=== PATIENT | female | born 2005 | race Caucasian/White ===

== ENCOUNTER 2024-06-01 01:07 | Emergency (ER) | payer OTHER, SELFPAY ==
[2024-06-01 01:16] VITALS: BP 125/74; PULSE 75; RESP 20; TEMP 36.7; O2SAT 100; BMI 25.0
[2024-06-01 01:33] VITALS: TEMP 36.7
[2024-06-01] MEDS: LOPERAMIDE HCL 2 MG CAPSULE PO (01:33)
[2024-06-01] MEDS: FAMOTIDINE 20 MG TABLET PO (01:33)
[2024-06-01] MEDS: ONDANSETRON ODT 4 MG TAB PO (01:33)
[2024-06-01] MEDS: ACETAMINOPHEN 500 MG TABLET 1000 MG PO (01:33)
--- NOTE | 2024-06-01 01:50 | ED.GENADULT ---
HPI - General Adult General Chief complaint: Abdominal Pain Stated complaint: right side abdominal pain Time Seen by Provider: 06/01/24 01:20 Source: patient Mode of arrival: ambulatory Limitations: no limitations History of Present Illness HPI narrative: 18-year-old female presents with 1 hour of epigastric area pain. Accompanied by mild nausea. No vomiting. Patient had about of loose watery stool at onset of symptoms, none since. Has not tried taking any Tylenol, ibuprofen, Imodium, Pepto, Tums or other typical medications. Called the nurse triage line and they recommended that she be evaluated. Rationale for that is unclear. No bloody stools, no bloody emesis. No abdominal trauma or injury. Not anticoagulated. No prior history of abdominal surgeries. No recent antibiotic use. No pertinent travel. No known sick contacts. Normal urination, has been eating and drinking normally through the day. Pain does radiate to the right side a little bit but mainly just to the epigastrium area on her description. No history of pancreatitis, heavy alcohol use or other symptoms. Past medical history benign per her report. Home medications are Vistaril sertraline and control. Allergy to penicillin. ROS notable for the GI symptoms as above only, otherwise benign times 12 systems. Related Data Home Medications ?Medication ?Instructions ?Recorded ?Confirmed hydroxyzine pamoate 25 mg capsule 25 mg PO DAILY PRN 06/01/24 06/01/24 norethindrone (contraceptive) 0.35 0.35 mg PO DAILY 06/01/24 06/01/24 mg tablet (Alie) sertraline 100 mg tablet 100 mg PO DAILY 06/01/24 06/01/24 Allergies Allergy/AdvReac Type Severity Reaction Status Date / Time Penicillins Allergy Mild Hives Verified 06/01/24 01:18 Exam Const: Vital Signs, click to edit/add: Vital Signs - 24 hr 06/01/24 01:16 06/01/24 01:33 Temperature 98.0 F 98.0 F Pulse Rate [Right Pulse Oximeter] 75 Respiratory Rate 20 Blood Pressure [Ri ght Upper Arm] 125/74 Pulse Oximetry 100 Oxygen Delivery Me thod Room Air Documenting provider has reviewed patient's vital signs: yes Common normals: no apparent distress General appearance: cooperative, comfortable and well kempt HENMT: Common normals: normocephalic, moist oral mucous membranes and oropharynx normal Head and scalp: normocephalic Face and sinus: normal facial exam Mouth: oral and palatal mucosa normal Eye: Common normals: conjunctivae normal General eye: normal appearance of both eyes Conjunctiva: conjunctiva(e) normal Neck & C-Spine: Common normals: no lymphadenopathy General: normal visual inspection Resp: Common normals: normal respiratory effort, no use of accessory muscles and clear to auscultation bilaterally Auscultation: clear to auscultation bilaterally Cardio: Common normals: regular rate, regular rhythm, S1 normal heart sound, S2 normal heart sound and no murmurs Rate: regular rate Rhythm: regular rhythm Heart sounds: S1 normal and S2 normal GI: Common normals: Normal to inspection, nondistended, normoactive bowel sounds present, soft to palpation, no hepatosplenomegaly and no masses Palpation: soft and no hepatosplenomegaly Other: Mildly tender to epigastrium only, no rebound tenderness or guarding. No mass. Psych: Common normals: thought process normal Appearance: well kempt Attitude: engaged Mood and affect: euthymic mood Thought process: normal thought process Attention/concentration: attention grossly intact Insight: insight good Judgement: judgment good Skin: Common normals: no rashes or lesions noted General skin exam: no rashes or lesions noted Course Course ED Course: 18-year-old female with nausea and single bout of diarrhea, nonbloody. No fevers, severe weakness, vomiting, fever. Exam is fairly reassuring. Most likely diagnosis is gastroenteritis but cannot exclude gallstone, gallbladder disease, less likely would be pancreatitis, obstruction, volvulus, musculoskeletal, amongst others. Exam is very initially reassuring. I recommended a trial of Imodium, Tylenol, famotidine, Zofran and re-evaluate. If not effective, would then recommend further workup. Reevaluation(s) Time of Reevaluation #1: 02:14 Reevaluation #1: Patient did very well with the famotidine, Zofran, Imodium and Tylenol. Asymptomatic now. Trial of oral liquids here in the ED when great. We discussed her symptoms and how I think this is a simple gastroenteritis but could be an early Isiah of something more bothersome like gallbladder disease, colitis, inflammatory bowel disease, etc.. If she has persistent symptoms she should seek re-evaluation. Alarm symptoms are reviewed there were warrant ED presentation like persistent vomiting, high fever, severe pain. She verbalizes understanding and agreement. She will supervisor opening and picking some [id number] Imodium, continue Tylenol and ibuprofen. She will be given a small supply of Zofran from [facility]. Typical course of the illness was reviewed. Written instructions provided. Vital Signs Vital signs: Initial Vital Signs Temperature 98.0 F 06/01/24 01:16 Temperature Source Temporal Artery Scan 06/01/24 01:16 Pulse Rate 75 06/01/24 01:16 Respiratory Rate 20 06/01/24 01:16 Blood Pressure 125/74 06/01/24 01:16 Blood Pressure Mean 91 06/01/24 01:16 Blood Pressure Position Sitting 06/01/24 01:16 Pulse Oximetry 100 06/01/24 01:16 Oxygen Delivery Method Room Air 06/01/24 01:16 Vital Signs Temperature 98.0 F 06/01/24 01:16 Pulse Rate 75 06/01/24 01:16 Respiratory Rate 20 06/01/24 01:16 Blood Pressure 125/74 06/01/24 01:16 Pulse Oximetry 100 06/01/24 01:16 Oxygen Delivery Method Room Air 06/01/24 01:16 Temperature 98.0 F 06/01/24 01:33 Pulse Rate 75 06/01/24 01:16 Respiratory Rate 20 06/01/24 01:16 Blood Pressure 125/74 06/01/24 01:16 Pulse Oximetry 100 06/01/24 01:16 Oxygen Delivery Method Room Air 06/01/24 01:16 Medications Administered Medications: Discontinued Medications Generic Name Dose Route Start Last Admin Trade Name Tiana PRN Reason Stop Dose Admin Acetaminophen 1,000 mg 06/01/24 01:27 06/01/24 01:33 Acetaminophen 500 Mg Tablet PO 06/01/24 01:28 1,000 mg ONCE ONE Administration Famotidine 20 mg 06/01/24 01:27 06/01/24 01:33 Famotidine 20 Mg Tablet PO 06/01/24 01:28 20 mg ONCE ONE Administration Loperamide HCl 2 mg 06/01/24 01:27 06/01/24 01:33 Loperamide Hcl 2 Mg Capsule PO 06/01/24 01:28 2 mg ONCE ONE Administration Ondansetron HCl 4 mg 06/01/24 01:27 06/01/24 01:33 Ondansetron Odt 4 Mg Tab PO 06/01/24 01:28 4 mg ONCE ONE Administration Discharge Plan Discharge Clinical Impression: Gastroenteritis Patient Disposition: Home w/ Parent or Adult Condition: Improved Instructions: Gastroenteritis (DC) Additional Instructions: As we discussed, your symptoms are likely from a viral stomach flu, also known as gastroenteritis. I am glad the medicines were helpful. I would recommend that you invest in some [id number] Imodium. This is a common antidiarrheal medicine that every adult should have easy access to. It is okay to use Tylenol 1000 mg every 6 hours as needed for discomfort. I will give you a prescription for Zofran which is the anti nausea medicine that you were given here. You may take this if the nausea worsens again, up to every 6 hours. Since her symptoms are quite mild, I did not recommend further workup. If you continue to have these persistent spells, it could be a sign of some mild gallbladder disease. I would recommend that you follow-up in the primary care clinic for further evaluation if this keeps occurring. If you have severe right-sided abdominal plain plus fever and persistent vomiting, you should come to an emergency department. Also return if you have been unable to hold down any liquids for over 16 hours even with medications, severe bloody stools or other signs of severe weakness or worsening. Since her symptoms are mild, you may return to all school and or work duties immediately. Activity Level: No Restrictions Discharge Diet: Regular Prescriptions: No Action sertraline 100 mg tablet 100 mg PO DAILY hydroxyzine pamoate 25 mg capsule 25 mg PO DAILY PRN norethindrone (contraceptive) [Alie] 0.35 mg tablet 0.35 mg PO DAILY Stand Alone Forms: [employer] Info Instructions
--- OUTSIDE RECORDS SUMMARY | 2024-06-01 01:54 | XMS_ITS | Referral Summary ---
Author Organization [facility] Address [address] [place] [address]. [place] [address] Care Team Providers Care Foreign Car Mechanic Name Role Phone Jazmine Lacey MD Primary Care Provider [phone] Allergies No known active allergies Medications Medication Sig Dispensed Refills Start Date End Date Status NO ACTIVE MEDICATIONS Act gildardo Immunizations Name Administration Dates Next Due DTAP (<7y) 06/21/2009, 6,2004,2004, HEPATITIS A (PEDS 12M-18Y) 06/12/2007,06/19/2006 HIB (PRP-T) 06/12/2007,2004,2004 HPV9 09/25/2016 Hepatitis B, Peds 06/27/2005,2004,08/24/20 04 Influenza (H1N1) 09/22/2009,08/16/2009 MMR 06/21/2009,06/27/2005 Meningococcal,unspecified 09/25/2016 Pneumococcal (PCV 7) 06/27/2005,2004,10/26,2004 Poliovirus, inactivated (IPV) 06/21/2009, 006,2004,2004 TDAP Vaccine (Adacel) 09/25/2016 Varicella 06/21/2009,09/26/2005 Social History Tobacco Use Types Packs/Day Years Used Date Smoking Tobacco: Never Smokeless Tobacco: Never Alcohol Use Standard Drinks/Week Comments Not Asked 0 (1 standard drink = 0.6 oz pur e alcohol) Sex and Gender Information Value Date Recorded Sex Assigned at Not on file Gender Identity Not on file Sexual Orientation Not on file Last Filed Vital Signs Vital Sign Reading Time Taken Comments Blood Pressure 102/60 08/09/2018 4:01 PM VALIDATION ARCHITECT Pulse 57 08/09/2018 4:01 PM VALIDATION ARCHITECT Temperature 37.1 ??C (98.8 ??F) 08/09/2018 4:01 PM CS T Respiratory Rate 20 06/21/2012 3:43 PM CDT Oxygen Saturation 97% 08/09/2018 4:01 PM VALIDATION ARCHITECT Inhaled Oxygen Concentration - - Weight 72.1 kg (159 lb) 08/09/2018 4:01 PM VALIDATION ARCHITECT Height 165.7 cm (5' 5.25) 09/10/2017 2:28 PM CS T Body Mass Index - - Plan of Treatment Not on file Care Teams Foreign Car Mechanic Relationship Specialty Start Date End Date Jazmine Lacey MD PCP - General Pediatrics 09/10/17
--- OUTSIDE RECORDS SUMMARY | 2024-06-01 01:54 | XMS_ITS | Patient Health Record ---
Author Organization [facility] Address [address] [place] [address] [address] [place] [address] Support Name Relationship Address Phone Aurora Simmons Guarantor Unknown [phone] Allergies Allergen (clinical drug ingredient) Drug/Non Drug Allergy documented on EMR Reaction Allergy Type Onset Date Status amoxicillin Amoxicillin hives Drug Allergy Act gildardo Reason For Referral No Information Immunizations Vaccine Route Administration Date Status Comme nts zzInfluenza, unspecified formulation (CPT 32826 Inactive) Unknown 07/14/2007 Administered (Jose Alejandro) Imported in from [employer] Conversion on Apr 06, 2013 zzInfluenza, unspecified formulation (CPT 96244 Inactive) IM Intramuscular 09/25/2016 Administered (Jose Alejandro) zzInfluenza, live, intranasal OTH Other/Miscellaneous 07/06/2013 Administered (Jose Alejandro) zzInfluenza, live, intranasal Unknown 06/18/2014 Administered (Jose Alejandro) zzInfluenza, FLUZONE 36MOS+ Unknown 06/24/2008 Administered (Jose Alejandro) zzInfluenza, FLUZONE 36MOS+ Unknown 06/28/2011 Administered (Jose Alejandro) zzInfluenza, FLUZONE 36MOS+ Unknown 06/24/2012 Administered (Jose Alejandro) zzInfluenza (split), preservative free, 6-35 months Unknown 07/06/2005 Administered (Jose Alejandro) zzInfluenza (split), preservative free, 6-35 months Unknown 08/15/2006 Administered (Jose Alejandro) Varicella (Varivax) Unknown 09/26/2005 Administered (Mi g) Varicella (Varivax) Unknown 06/21/2009 Administered (Mi g) Tdap (Boostrix) IM Intramuscular 09/25/2016 Administered ( Jose Alejandro) Pneumococcal conjugate PCV 13 Unknown 2004 Administered (Jose Alejandro) Pneumococcal conjugate PCV 13 Unknown 2004 Administered (Jose Alejandro) Pneumococcal conjugate PCV 13 Unknown 2004 Administered (Jose Alejandro) Pneumococcal conjugate PCV 13 Unknown 06/27/2005 Administered (Jose Alejandro) Novel [id number] Unknown 08/16/2009 Administered (Jose Alejandro) Novel Eymnmydou-[id number] Unknown 09/22/2009 Administered (Jose Alejandro) MMR Unknown 06/27/2005 Administered (Jose Alejandro) MMR Unknown 06/21/2009 Administered (Jose Alejandro) Meningococcal MCV4O (Menveo) (CVX 136) IM Intramuscular 09/25/2016 Administered (Jose Alejandro) Meningococcal MCV4O (Menveo) (CVX 136) IM Intramuscular 11/04/2020 Administered IPV (IPOL) Unknown 2004 Administered (Jose Alejandro) IPV (IPOL) Unknown 2004 Administered (Jose Alejandro) IPV (IPOL) Unknown 12/26/2005 Administered (Jose Alejandro) Influenza, (Fluarix)(VFC) 6mos + IM Intramuscular 07/05/2017 Administered Influenza, (Fluarix)(VFC) 6mos + Unknown 2020 Administered HPV9 (Gardasil) IM Intramuscular 05/04/2017 Administered HPV (human papillomavirus), quadrivalent, 3 dose schedule IM Intramuscular 09/25/2016 Administered (Jose Alejandro) Hib-Hep B Unknown 2004 Administered (Jose Alejandro) Hib-Hep B Unknown 2004 Administered (Jose Alejandro) Hib, unspecified formulation Unknown 06/12/2007 Administered (Jose Alejandro) Hep B, adol or ped, Engerix B 3 dose schedule Unknown 06/27/2005 Administered (Jose Alejandro) Hep A, ped/adol, 2 dose (Havrix) Unknown 06/19/2006 Administered (Jose Alejandro) Hep A, ped/adol, 2 dose (Havrix) Unknown 06/12/2007 Administered (Jose Alejandro) DTaP-IPV (Kinrix) 4-6 yrs Unknown 06/21/2009 Administered (Jose Alejandro) DTaP (INFANRIX) Unknown 2004 Administered (Jose Alejandro) DTaP (INFANRIX) Unknown 2004 Administered (Jose Alejandro) DTaP (INFANRIX) Unknown 2004 Administered (Jose Alejandro) DTaP (INFANRIX) Unknown 09/26/2005 [place] History Tobacco Use: Social History Observation Description Date Details (start date - stop date) Never Smoker NA - NA Tobacco Use/Smoking Question Answer Notes Are you a nonsmoker Tobacco use other than smoking: Question Answer Notes Are you an other tobacco user? No Problems Problem Type SNOMED Code ICD Code Onset Dates Problem Status W/U Status Risk Notes Problem Overweight (359133250) Overweight (E66.3) Active confirmed Problem 095200095 Wears glasses (Z97.3) Active confirmed Plan Of Treatment No Information Insurance Providers Payer Name Payer Address Payer Phone Subscriber Number Group Number Insured Name Patient Relationship to Insured Coverage Start Date Coverage End Date [employer] [address] [address] [place], [place] [id number] Aurora Zepeda Child - Insured has Financial Responsibility Medical (General) History Medical History History ICD Code obstructed tear ducts Other atopic dermatitis and related cond itions 691.8 Surgical History Surgery Date(Month/Year) Procedure:glasses() 06/18/2014 Procedure:NLD probe() 07/06/2013
--- OUTSIDE RECORDS SUMMARY | 2024-06-01 01:54 | XMS_ITS | Encounter Summary ---
Author Organization [facility] Address [address] [place] [address] Care Team Providers Care Fish Dressing Machine Feeder Name Role Phone Self-Referral, Patient Primary Care Provider Encounter Details Date Type Department Care Team (Latest Contact Info) Description 05/01/2024 9:30 AM CDT Lab Visit [facility] [address] [place], [place] [id number] Generalized anxiety disorder (HRC); Need for hepatitis C screening test; Screening for HIV (human immunodeficiency virus); Anxiety (HRC) Social History Tobacco Use Types Packs/Day Years Used Date Smoking Tobacco: Never Passive Smoke Exposure: Never Smokeless Tobacco: Never Alcohol Use Standard Drinks/Week Comments Never 0 (1 standard drink = 0.6 oz pur e alcohol) Sex and Gender Information Value Date Recorded Sex Assigned at Not on file Gender Identity Not on file Sexual Orientation Not on file documented as of this encounter Plan of Treatment Not on file documented as of this encounter Procedures Procedure Name Priority Date/Time Associated Diagnosis Comments CBC, NO DIFFERENTIAL REVIEW Routine 05/01/2024 9:43 AM CDT Generalized anxiety disorder (HRC) HIV 1/2 AG/AB 4TH GEN Routine 05/01/2024 9:43 AM CDT Screening for HIV (human immunodeficiency virus) VITAMIN D 25-HYDROXY, TOTAL Routine 05/01/2024 9:43 AM CDT Generalized anxiety disorder (HRC) T3, FREE Routine 05/01/2024 9:43 AM CDT Generalized anxiety disorder (HRC) COMPREHENSIVE METABOLIC PANEL Routine 05/01/2024 9:43 AM CDT Generalized anxiety disorder (HRC) TSH, SENSITIVE Routine 05/01/2024 9:43 AM CDT Generalized anxiety disorder (HRC) FREE T4 Routine 05/01/2024 9:43 AM CDT Generalized anxiety disorder (HRC) HEPATITIS C ANTIBODY, WITH REFLEX Routine 05/01/2024 9:43 AM CDT Need for hepatitis C screening test VITAMIN B12 ONLY Routine 05/01/2024 9:43 AM CDT Generalized anxiety disorder (HRC) documented in this encounter Results * HIV 1/2 Ag/Ab 4th Generation (05/01/2024 9:43 AM CDT) HIV 1/2 Antigen/Anti body (4th generation) Negative (Non Reactive) Negative (Non Reactive) 05/01/2024 4:03 PM CDT [facility] Comment:HIV-1 p24 Antigen an d HIV-1/HIV-2 Antibody not detected Blood Venipuncture / Unknown 05/01/2024 9:43 AM CDT 05/01/2024 9:43 AM CDT Zeke Mccarty MD LAB_1 [facility] [address] * Hepatitis C Antibody, with Reflex (05/01/2024 9:43 AM CDT) Hepatitis C Antibody Negative (Non Reactive) Negative (Non Reactive) 05/01/2024 3:52 PM CDT [facility] Comment:Antibodies to HCV no t detected. Does not exclude the possiblity of exposure to HCV. Blood Venipuncture / Unknown 05/01/2024 9:43 AM CDT 05/01/2024 9:43 AM CDT Zeke Mccarty MD LAB_1 Performing Organization Address [facility] Co de Phone Number [facility] [address] * (ABNORMAL) Vitamin D 25-Hydroxy, Total (05/01/2024 9:43 AM CDT) Vitamin D, 25-OH, Total 22(L) 30 - 80 ng/mL 05/01/2024 3:[address] [facility] Blood Venipuncture / Unknown 05/01/2024 9:43 AM CDT 05/01/2024 9:[address] [facility] - 05/01/2024 3:55 PM CDT Expected values Deficiency: <20 ng/mL Insufficiency: 20-29 ng/mL Optimum: 30-80 ng/mL Possible toxicity: >80 ng/mL Rose Mary Gomez APRN, CNM LAB_1 Performing Organization Address [facility] Co de Phone Number [facility] [address] * Vitamin B12 Only (05/01/2024 9:43 AM CDT) Pathologist [facility] Vitamin B12 349 213 - 816 pg/mL 05/01/2024 4:[address] [facility] Blood Venipuncture / Unknown 05/01/2024 9:43 AM CDT 05/01/2024 9:43 AM CDT Rose Mary Gomez APRN, CNM LAB_1 Performing Organization Address [facility] Co de Phone Number [facility] [address] * TSH (05/01/2024 9:43 AM CDT) TSH, Sensitive 0.77 0.30 - 4.50 uIU/mL 05/01/2024 4:[address] [facility] Blood Venipuncture / Unknown 05/01/2024 9:43 AM CDT 05/01/2024 9:43 AM CDT Rose Mary Gomez APRN, CNM LAB_1 Performing Organization Address [facility] Co de Phone Number [facility] [address] * Free T4 (05/01/2024 9:43 AM CDT) T4, Free 0.9 0.7 - 1.5 ng/dL 05/01/2024 4:[address] [facility] Blood Venipuncture / Unknown 05/01/2024 9:43 AM CDT 05/01/2024 9:43 AM CDT Rose Mary Gomez APRN, CNM LAB_1 Performing Organization Address [facility] Co de Phone Number [facility] [address] * T3, Free (05/01/2024 9:43 AM CDT) T3, Free 2.9 1.7 - 3.7 pg/mL 05/01/2024 4:[address] [facility] Blood Venipuncture / Unknown 05/01/2024 9:43 AM CDT 05/01/2024 9:43 AM CDT Rose Mary Gomez APRN, CNM LAB_1 Performing Organization Address [facility] de Phone Number [facility] [address] * Comp Metabolic Panel (05/01/2024 9:43 AM CDT) Sodium 137 136 - 145 mmol/L 05/01/2024 3:48 PM CDT [facility] Potassium 4.0 3.5 - 5.1 mmol/L 05/01/2024 3:48 PM [facility] Chloride 107 98 - 109 mmol/L 05/01/2024 3:48 PM [facility] CO2 23 20 - 29 mmol/L 05/01/2024 3:48 PM [facility] Anion Gap 7 6 - 16 mmol/L 05/01/2024 3:48 PM [facility] Calcium 9.5 8.4 - 10.4 mg/dL 05/01/2024 3:48 PM [facility] BUN 16 7 - 26 mg/dL 05/01/2024 3:48 PM [facility] Creatinine 0.71 0.55 - 1.02 mg/dL 05/01/2024 3:48 PM [facility] Alkaline Phosphatase 46 40 - 150 U/L 05/01/2024 3:48 PM [facility] AST (SGOT) 17 10 - 40 U/L 05/01/2024 3:48 PM [facility] ALT (SGPT) 18 <=55 U/L 05/01/2024 3:48 PM [facility] Bilirubin, Total 0.4 0.2 - 1.2 mg/dL 05/01/2024 3:48 PM [facility] Protein, Total 7.0 6.4 - 8.3 g/dL 05/01/2024 3:48 PM [facility] Albumin 4.2 3.5 - 5.0 g/dL 05/01/2024 3:48 PM [facility] Glucose 77 70 - 100 mg/dL 05/01/2024 3:48 PM [facility] Comment:The given reference range is for the fasting state. Non-fasting reference range for glucose is 70 - 180 mg/dL. GFR, Estimated >60 >60 mL/min/1. 73m2 05/01/2024 3:48 PM [facility] Hours Fasting 0.1 8 - 12 Hours 05/01/2024 3:48 PM [facility] Blood Venipuncture / Unknown 05/01/2024 9:43 AM CDT 05/01/2024 9:43 AM CDT Rose Mary Gomez APRN, CNM LAB_1 [facility] [address] * CBC, No Differential Review (05/01/2024 9:43 AM CDT) WBC 6.3 3.5 - 10.5 x10(9)/L 05/01/2024 4:33 PM [facility] RBC 4.54 3.90 - 5.03 x10(12)/L 05/01/2024 4:33 PM [facility] Hemoglobin 13.1 12.0 - 15.5 g/dL 05/01/2024 4:33 PM [facility] HCT 40.0 34.9 - 44.5 % 05/01/2024 4:33 PM [facility] MCV 88.1 80.0 - 100.0 fL 05/01/2024 4:33 PM [facility] MCH 28.9 27.6 - 33.3 pg 05/01/2024 4:33 PM [facility] MCHC 32.8 31.5 - 35.2 g/dL 05/01/2024 4:33 PM [facility] RDW 11.9 11.9 - 15.5 % 05/01/2024 4:33 PM [facility] Platelets 274 150 - 450 x10(9)/L 05/01/2024 4:33 PM [facility] Automated NRBC 0 <=0 /100 WBC 05/01/2024 4:33 PM [facility] Blood Venipuncture / Unknown 05/01/2024 9:43 AM CDT 05/01/2024 9:43 AM CDT Rose Mary Gomez APRN, CNM LAB_1 [place] [address], [facility] documented in this encounter Visit Diagnoses Diagnosis Generalized anxiety disorder (HRC) Generalized anxiety disorder Need for hepatitis C screening test Special screening examination for other specified viral diseases Screening for HIV (human immunodeficiency virus) Special screening examination for other specified viral diseases Anxiety (HRC) Anxiety state, unspecified documented in this encounter Care Teams Fish Dressing Machine Feeder Relationship Specialty Start Date End Date Self-Referral, Patient, [place] [address] PCP - General 07/03/22 documented as of this encounter
--- OUTSIDE RECORDS SUMMARY | 2024-06-01 01:54 | XMS_ITS | Encounter Summary ---
Author Organization Formerly [facility], later [facility] Address [address] [place] [address] Care Team Providers Care Production Ski Repairer Name Role Phone Self-Referral, Patient Primary Care Provider Reason for Referral * Consult/Transfer Care (Routine) - New Request Specialty Diagnoses / Procedures Referred By Stefany palma Referred To Contact Diagnoses Encounter for other contraceptive management Zeke Mccarty MD [id number] [place] [id number] Referral ID Status Reason Start Date Expiration Date V isits Requested Visits Authorized [id number] New Request 05/01/2024 07/31/2025 1 1 Scheduling Instructions Your clinician has recommended an appointment with [facility] DIRECTOR OF GOVERNMENT SALES. You can quickly make your appointment online at [email or web address]. You can also call [phone] for help scheduling your appointment. We suggest you call your health insurance company about your coverage and benefits for this appointment. Question Answer Appointment Urgency? Non-Urgent Reason for Visit? Control Comments [place] Reason for Visit * Reason Comments ROUTINE HEALTH MAINTENANCE Encounter Details Date Type Department Care Team (Latest Contact Info) Description 05/01/2024 8:50 AM CDT Office Visit [facility] [id number] [place] [id number] [place] [address] [place], [place] [id number] Routine health maintenance (Primary Dx); Routine screening for STI (sexually transmitted infection); Screening for iron deficiency anemia; Need for hepatitis C screening test; Screening for HIV (human immunodeficiency virus); Current moderate episode of major depressive disorder, unspecified whether recurrent (HRC); Anxiety (HRC); Encounter for other contraceptive management; Screening for STDs (sexually transmitted diseases); Encounter for immunization Social History Tobacco Use Types Packs/Day Years Used Date Smoking Tobacco: Never Passive Smoke Exposure: Never Smokeless Tobacco: Never Tobacco Cessation:Counseling Given: Not Answered Alcohol Use Standard Drinks/Week Comments Never 0 (1 standard drink = 0.6 oz pur e alcohol) Sex and Gender Information Value Date Recorded Sex Assigned at Not on file Gender Identity Not on file Sexual Orientation Not on file documented as of this encounter Last Filed Vital Signs Vital Sign Reading Time Taken Comments Blood Pressure 118/67 05/01/2024 8:43 AM CDT Pulse 72 05/01/2024 8:43 AM CDT Temperature - - Respiratory Rate - - Oxygen Saturation - - Inhaled Oxygen Concentration - - Weight 67.1 kg (148 lb) 05/01/2024 8:43 AM CDT Height 167 cm (5' 5.75) 05/01/2024 8:43 AM CDT Body Mass Index 24.07 05/01/2024 8:43 AM CDT documented in this encounter Patient Instructions * Patient Instructions* Zeke Mccarty MD - 05/01/2024 8:50 AM CDT Images from the original note were not included. Vitamin d 2000 IU daily Or you can take 61603 IU once a week ( 2 x 5000 IU) Start taking control You can started after your periods or start right away. Recommend to forms of protection ie condoms for the 1st 2 weeks. You can discuss with OBGYN about different forms of contraception. Example Nexplanon Normal exam Do labs today Plan based on results Good luck with school It's been a pleasure seeing you today. Zeke Mccarty MD 05/01/2024, 9:28 AM Well Visit, Ages 18 to 65: Care Instructions Well visits can help you stay healthy. Your doctor has checked your overall health and may have suggested ways to take good care of yourself. Your doctor also may have recommended tests. You can helpprevent illness with healthy eating, good sleep, vaccinations, regular exercise, and other steps. Get the tests that you and your doctor decide on. Depending on your age and risks, examples might include screening for diabetes; hepatitis C; HIV; and cervical, breast, lung, and colon cancer. Screening helps find diseases before any symptoms appear. Eat healthy foods. Choose fruits, vegetables, whole grains, lean protein, and low-fat dairy foods. Limit saturated fat and reduce salt. Limit alcohol. Men should have no more than 2 drinks a day. Women should have no more than 1. For some people, no alcohol is the best choice. Exercise. Get at least 30 minutes of exercise on most days of the week. Walking can be a good choice. Reach and stay at your healthy weight. This will lower your risk for many health problems. Take care of your mental health. Try to stay connected with friends, family, and community, and find ways to manage stress. If you're feeling depressed or hopeless, talk to someone. A counselor can help. If you don't have acounselor, talk to your doctor. Talk to your doctor if you think you may have a problem with alcohol or drug use. This includes prescription medicines, marijuana, and other drugs. Avoid tobacco and nicotine: Don't smoke, vape, or chew. If you need help quitting, talk to your doctor. Practice safer sex. Getting tested, using condoms or dental dams, and limiting sex partners can help prevent STIs. Use control if it's important to you to prevent . Talk with your doctor about your choices and what might be best for you. Prevent problems where you can. Protect your skin from too much sun, wash your hands, brush your teeth twice a day, and wear a seat belt in the car. Where can you learn more? 1. Go to https://www.urturn/healthlibrary. 2. Enter P072 in the search box. Current as of: April 14, 2023 Content Version: 14.1 ?? [employer]. Care instructions adapted under license by your healthcare professional. If you have questions about a medical condition or this instruction, always ask your healthcare professional. [employer] disclaims any warranty or liability for your use of this information. Terapio DNA is your genetic information, and it's unique to you. It can also hold the garcia to discovering genetic health risks, creating personalized care and building a healthier community. [facility] is launching myGenetics, a study that looks at how DNA impacts health and how it canbe used to provide more personalized care to you, your family and community. What you can learn from your DNA Looking at your DNA can give insight to your personal traits, ancestral roots and risk of developing certain inherited conditions. Discover your genetic risk for: Hereditary breast and ovarian cancer Barrett syndrome (a type of hereditary colorectal cancer) Familial hypercholesterolemia (hereditary high cholesterol) Learn about your: Regional ancestry Traits like gluten tolerance, caffeine sensitivity and more How to participate Be a part of a program that could improve health care for you, your family and generations to come.If you're a [facility] or Negar Gunter patient over the age of 18, you can take part in the study. Registration is quick and easy, and there is no cost to you. Learn more about [employer] and register at urturn/[email or web address] Your privacy is our priority We take great care to keep your information safe and secure and will not share personal data beyondwhat you have consented to. documented in this encounter Progress Notes * Zeke Mccarty MD - 05/01/2024 8:50 AM CDT Manjit Hopkins presents for ROUTINE HEALTH MAINTENANCE Current concerns: Blood test she would like to get done per psychiatrist: CBC CMP Free T3 and Free T4 TSH Vitamin B12 Vitamin D New relationship- wants to be sexually active Requesting control Otherwise she feels well. No concerns Consumption of fruits and vegetables is 0-1 servings each day. Exercise is 3-5 times per week, 30 minutes or more. Hearing concerns: No Feels safe at home: Yes Allergies: Penicillin when she was a child. Past medical history: Depression anxiety. Past surgical history: Phillips tooth removed Social history: Never smoker. No alcohol or drug use. Lives at home with father and sister. Switches Garcia between mom and dad. They are . Patient quit drinking coffee 2 months ago because the psychiatrist recommended that. She drinks teasometimes. No soda consumption. She will be going to call in next Saturday in [facility]. Family history: Father has had knee surgery. Grandfather had some type of cancer. Mother is healthy. Objective BP 118/67 (BP Location: Right Arm, BP Cuff Size: Small Adult/Large Pediatrics) Pulse 72 Ht 5' 5.75 (1.67 m) Wt 148 lb (67.1 kg) LMP 04/03/2024 (Approximate) BMI 24.07 kg/m?? General: appears well, no acute distress, alert and oriented x3 HEENT: PERRLA, EOMI, nasal mucosa normal, MMM, Pharyngeal mucosa is normal NECK: supple soft without any lymphadenopathy LUNGS: Clear to auscultation bilaterally, no wheezes or rhonchi appreciated HEART: RRR, S1 S2 normal, no murmurs appreciated ABDOMEN: soft non tender non distended, positive bowel sounds NEURO: CN2-12 appears grossly normal, no significant motor or sensory deficits noted EXT: pedal pulses intact bilaterally, no pedal edema noted Assessment/Plan 1. Routine health maintenance Patient counseled: -healthy diet -increasing physical activity -tobacco cessation -safe alcohol consumption -protection from UV light -sleep hygiene -stress management -safety belt use -bike/cycle helmet use -firearm storage -calcium and vitamin D recommendations -recommended immunizations -contraception / STI prevention 2. Routine screening for STI (sexually transmitted infection) - Chlamydia & GC (14 Years and Older): Vagina 3. Screening for iron deficiency anemia 4. Need for hepatitis C screening test - Hepatitis C Antibody, with Reflex; Future 5. Screening for HIV (human immunodeficiency virus) - HIV 1/2 Ag/Ab 4th Generation; Future 6. Current moderate episode of major depressive disorder, unspecified whether recurrent (HRC) 7. Anxiety (HRC) Psychiatrist requested labs Counseled patient likely vitamin-D will not be covered She will take vitamin-D - Complete Blood Count-No Diff; Future - Comprehensive Metabolic Panel; Future - TSH; Future - T3, Free; Future - Free T4; Future - Vitamin B12 Only; Future 8. Encounter for other contraceptive management Counseled patient about contraception Start OCP Prescription sent She maybe interested in discussing about Nexplanon so will refer her to see OBGYN. Counseled patient about using OCPs and 2nd form of protection for the 1st 2 weeks and if on antibiotics - norethindrone-ethinyl estradiol (LOESTRIN 1/20, 21,) 1mg-20mcg tablet; Take 1 Tablet by mouth daily. Dispense: 84 Tablet; Refill: 4 - Ob-Chemical Sales Representative Consult 9. Screening for STDs (sexually transmitted diseases) - Chlamydia & GC (14 Years and Older): Vagina; Future 10. Encounter for immunization - 9Vhpv (Gardasil) Zeke Mccarty MD 05/01/2024, 10:27 AM documented in this encounter Plan of Treatment Scheduled Referrals Name Type Priority Associated Diagnoses Orde r Schedule Ob-Chemical Sales Representative Consult Referral Routine Encounter for other contraceptive management Ordered: 05/01/2024 documented as of this encounter Procedures Procedure Name Priority Date/Time Associated Diagnosis Comments CHLAMYDIA & GC (14 YEARS & OLDER) Routine 05/01/2024 8:59 AM CDT Routine screening for STI (sexually transmitted infection) documented in this encounter Results * HIV 1/2 Ag/Ab 4th Generation (05/01/2024 9:43 AM CDT) HIV 1/2 Antigen/Anti body (4th generation) Negative (Non Reactive) Negative (Non Reactive) 05/01/2024 4:03 PM CDT [facility] Comment:HIV-1 p24 Antigen an d HIV-1/HIV-2 Antibody not detected Blood Venipuncture / Unknown 05/01/2024 9:43 AM CDT 05/01/2024 9:43 AM CDT Zeke Mccarty MD LAB_1 [facility] [address] * Hepatitis C Antibody, with Reflex (05/01/2024 9:43 AM CDT) Hepatitis C Antibody Negative (Non Reactive) Negative (Non Reactive) 05/01/2024 3:52 PM CDT [facility] Comment:Antibodies to HCV no t detected. Does not exclude the possiblity of exposure to HCV. Blood Venipuncture / Unknown 05/01/2024 9:43 AM CDT 05/01/2024 9:43 AM CDT Zeke Mccarty MD LAB_1 Performing Organization Address [facility] Co de Phone Number [facility] [address] * Chlamydia & GC (14 Years and Older): Vagina (05/01/2024 8:59 AM CDT) Chlamydia Trachomatis STD Not Detected Not Detected 05/01/2024 3:47 PM CDT [facility] N. gonorrhoeae STD Not Detected Not Detected 05/01/2024 3:47 PM CDT [facility] Swab STD SPECIMEN FROM VAGINA / Unknown Non-blood Collection / Unknown 05/01/2024 8:59 AM CDT 05/01/2024 9:16 AM CDT Narrative [facility] - 05/01/2024 3:47 PM CDT Test performed by Sample Washer Mediated Amplification (TMA). Zeke Mccarty MD LAB_1 Performing Organization Address [facility] Co de Phone Number [facility] [address] documented in this encounter Visit Diagnoses Diagnosis Routine health maintenance- Primary Routine general medical examination at a health care facility Routine screening for STI (sexually transmitted infection) Screening examination for venereal disease Screening for iron deficiency anemia Need for hepatitis C screening test Special screening examination for other specified viral diseases Screening for HIV (human immunodeficiency virus) Special screening examination for other specified viral diseases Current moderate episode of major depressive disorder, unspecified whether recurrent (HRC) Anxiety (HRC) Anxiety state, unspecified Encounter for other contraceptive management Screening for STDs (sexually transmitted diseases) Screening examination for venereal disease Encounter for immunization Need for other specified prophylactic vaccination against single bacterial disease documented in this encounter Care Teams Production Ski Repairer Relationship Specialty Start Date End Date Self-Referral, Patient, [place] [address] PCP - General 07/03/22 documented as of this encounter
--- OUTSIDE RECORDS SUMMARY | 2024-06-01 01:54 | XMS_ITS | Encounter Summary ---
Author Organization [facility] Address [address], [place] [address] Care Team Providers Care Mouse Breeder Name Role Phone Self-Referral, Patient Primary Care Provider Encounter Details Date Type Department Care Team (Late st Contact Info) Description 03/19/2024 Orders Only [facility] [address] [place] [address] Rose Mary Gomez, DRIVE AWAY DRIVER, CNM [address] [place], [place] [phone] Generalized anxiety disorder (HRC) (Primary Dx) Social History Tobacco Use Types Packs/Day Years Used Date Smoking Tobacco: Never Assessed Sex and Gender Information Value Date Recorded Sex Assigned at Not on file Gender Identity Not on file Sexual Orientation Not on file documented as of this encounter Plan of Treatment Not on file documented as of this encounter Results * (ABNORMAL) Vitamin D 25-Hydroxy, Total (05/01/2024 9:43 AM CDT) Vitamin D, 25-OH, Total 22(L) 30 - 80 ng/mL 05/01/2024 3:55 PM CDT [facility] Blood Venipuncture / Unknown 05/01/2024 9:43 AM CDT 05/01/2024 9:43 AM CDT Narrative [facility] - 05/01/2024 3:55 PM CDT Expected values Deficiency: <20 ng/mL Insufficiency: 20-29 ng/mL Optimum: 30-80 ng/mL Possible toxicity: >80 ng/mL Rose Mary Gomez APRN, CNM LAB_1 Performing Organization Address [facility] Co de Phone Number [facility] [address] * Vitamin B12 Only (05/01/2024 9:43 AM CDT) Vitamin B12 349 213 - 816 pg/mL 05/01/2024 4:03 PM CDT [facility] Blood Venipuncture / Unknown 05/01/2024 9:43 AM CDT 05/01/2024 9:43 AM CDT Rose Mary Gomez APRN, CNM LAB_1 Performing Organization Address [facility] Co de Phone Number [facility] [address] * TSH (05/01/2024 9:43 AM CDT) TSH, Sensitive 0.77 0.30 - 4.50 uIU/mL 05/01/2024 4:03 PM CDT [facility] Blood Venipuncture / Unknown 05/01/2024 9:43 AM CDT 05/01/2024 9:43 AM CDT Rose Mary Gomez APRN, CNM LAB_1 Performing Organization Address [facility] Co de Phone Number [facility] [address] * Free T4 (05/01/2024 9:43 AM CDT) T4, Free 0.9 0.7 - 1.5 ng/dL 05/01/2024 4:03 PM CDT [facility] Blood Venipuncture / Unknown 05/01/2024 9:43 AM CDT 05/01/2024 9:43 AM CDT Rose Mary Gomez APRN, CNM LAB_1 [facility] [address] * T3, Free (05/01/2024 9:43 AM CDT) T3, Free 2.9 1.7 - 3.7 pg/mL 05/01/2024 4:03 PM CDT [facility] Blood Venipuncture / Unknown 05/01/2024 9:43 AM CDT 05/01/2024 9:43 AM CDT Rose Mary Gomez APRN, WILFRED LAB_1 Performing Organization Address City/[facility]/ZIP Co de Phone Number [facility] [address] * Comp Metabolic Panel (05/01/2024 9:43 AM CDT) Sodium 137 136 - 145 mmol/L 05/01/2024 3:48 PM CDT [facility] Potassium 4.0 3.5 - 5.1 mmol/L 05/01/2024 3:48 PM T [facility] Chloride 107 98 - 109 mmol/L 05/01/2024 3:48 PM T [facility] CO2 23 20 - 29 mmol/L 05/01/2024 3:48 PM T [facility] Anion Gap 7 6 - 16 mmol/L 05/01/2024 3:48 PM T [facility] Calcium 9.5 8.4 - 10.4 mg/dL 05/01/2024 3:48 PM T [facility] BUN 16 7 - 26 mg/dL 05/01/2024 3:48 PM T [facility] Creatinine 0.71 0.55 - 1.02 mg/dL 05/01/2024 3:48 PM T [facility] Alkaline Phosphatase 46 40 - 150 U/L 05/01/2024 3:48 PM T [facility] AST (SGOT) 17 10 - 40 U/L 05/01/2024 3:48 PM CDT [facility] ALT (SGPT) 18 <=55 U/L 05/01/2024 3:48 PM CDT [facility] Bilirubin, Total 0.4 0.2 - 1.2 mg/dL 05/01/2024 3:48 PM CDT [facility] Protein, Total 7.0 6.4 - 8.3 g/dL 05/01/2024 3:48 PM CDT [facility] Albumin 4.2 3.5 - 5.0 g/dL 05/01/2024 3:48 PM CDT [facility] Glucose 77 70 - 100 mg/dL 05/01/2024 3:48 PM T [facility] Comment:The given reference range is for the fasting state. Non-fasting reference range for glucose is 70 - 180 mg/dL. GFR, Estimated >60 >60 mL/min/1. 73m2 05/01/2024 3:48 PM CDT [facility] Hours Fasting 0.1 8 - 12 Hours 05/01/2024 3:48 PM T [facility] Blood Venipuncture / Unknown 05/01/2024 9:43 AM CDT 05/01/2024 9:43 AM CDT Rose Mary Gomez APRN, CNM LAB_1 Performing Organization Address City/State/[facility] Co de Phone Number [facility] [address] [place] [address], [facility] * CBC, No Differential Review (05/01/2024 9:43 AM CDT) WBC 6.3 3.5 - 10.5 x10(9)/L 05/01/2024 4:33 PM [facility] RBC 4.54 3.90 - 5.03 x10(12)/L 05/01/2024 4:33 PM [facility] Hemoglobin 13.1 12.0 - 15.5 g/dL 05/01/2024 4:33 PM [facility] HCT 40.0 34.9 - 44.5 % 05/01/2024 4:33 PM [facility] MCV 88.1 80.0 - 100.0 fL 05/01/2024 4:33 PM [facility] MCH 28.9 27.6 - 33.3 pg 05/01/2024 4:33 PM [facility] MCHC 32.8 31.5 - 35.2 g/dL 05/01/2024 4:33 PM [facility] RDW 11.9 11.9 - 15.5 % 05/01/2024 4:33 PM [facility] Platelets 274 150 - 450 x10(9)/L 05/01/2024 4:33 PM [facility] Automated NRBC 0 <=0 /100 WBC 05/01/2024 4:33 PM [facility] Blood Venipuncture / Unknown 05/01/2024 9:43 AM CDT 05/01/2024 9:43 AM CDT Rose Mary Gomez APRN, CNM LAB_1 Performing Organization Address City/State/[facility] Co de Phone Number [id number] [place] [address] documented in this encounter Visit Diagnoses Diagnosis Generalized anxiety disorder (HRC)- Primary Generalized anxiety disorder documented in this encounter Care Teams Mouse Breeder Relationship Specialty Start Date End Date Self-Referral, Patient, [place] [address] PCP - General 07/03/22 documented as of this encounter
--- OUTSIDE RECORDS SUMMARY | 2024-06-01 01:54 | XMS_ITS | Clinical Summary ---
Author Organization [facility] Address [address] [place] [address]. [place] [address] Care Team Providers Care Supervisor Motor Vehicle Assembly Name Role Phone Jazmine Lacey MD Primary Care Provider [phone] Allergies No known active allergies Medications Medication [...] Comments Blood Pressure 102/60 08/09/2018 4:01 PM EMT P Pulse 57 08/09/2018 4:01 PM EMT P Temperature 37.1 ??C (98.8 ??F) 08/09/2018 4:01 PM CS T Respiratory Rate 20 06/21/2012 3:43 PM CDT Oxygen Saturation 97% 08/09/2018 4:01 PM EMT P Inhaled Oxygen Concentration - - Weight 72.1 kg (159 lb) 08/09/2018 4:01 PM EMT P Height 165.7 cm (5' 5.25) 09/10/2017 2:28 PM CS T Body Mass Index - - Plan of Treatment Not on file Care Teams Supervisor Motor Vehicle Assembly Relationship Specialty Start Date End Date Jazmine Lacey MD PCP - General Pediatrics 09/10/17
--- OUTSIDE RECORDS SUMMARY | 2024-06-01 01:54 | XMS_ITS | Clinical Summary ---
Author Organization [facility] Address [address] [place] [address] Care Team Providers Care Dam Tender Name Role Phone Self-Referral, Patient Primary Care Provider Source Comments You are receiving this document as you are listed as the primary care provider,follow-up provider, or the patient has been referred to you for consultation.This is in compliance with the Medicare and[facility] EHR Incentive [facility],which states Providers who transition their patient to another setting of careor provider of care or refers their patient to another provider of care shouldprovide summary care record for each transition of care or referral. [email or web address] Allergies No known active allergies Medications Medication Sig Dispensed Refills Start Date End Date Status sertraline (ZOLOFT) 100 MG tablet Take 1 Tablet (100 mg) by mouth daily. 04/14/2024 Active hydrOXYzine HCl (ATARAX) 25 MG tablet Take 1 Tablet (25 mg) by mouth daily as needed. 04/18/2024 Active doxycycline (VIBRAMYCIN) 100 MG capsule Take 1 Capsule (100 mg) by mouth two times a day. Active clindamycin (CLEOCIN T) 1 % external solution Apply topically two times a day. Active mupirocin calcium (BACTROBAN) 2 % cream Apply topically three times a day. Active norethindrone-ethiny l estradiol (LOESTRIN 09/28, ,) 1mg-20mcg tabletIndications:En counter for other contraceptive management Take 1 Tablet by mouth daily. 84 Tablet 4 05/01/2024 05/01/2025 Active Encounters Date Type Department Care Team Description 05/01/2024 9:30 AM CDT Lab Visit [facility] [id number] [place] [id number] Generalized anxiety disorder (HRC); Need for hepatitis C screening test; Screening for HIV (human immunodeficiency virus); Anxiety (HRC) 05/01/2024 8:50 AM CDT Office Visit [facility] [id number] [place] [id number] Zeke Mccarty MD Routine health maintenance (Primary Dx); Routine screening for STI (sexually transmitted infection); Screening for iron deficiency anemia; Need for hepatitis C screening test; Screening for HIV (human immunodeficiency virus); Current moderate episode of major depressive disorder, unspecified whether recurrent (HRC); Anxiety (HRC); Encounter for other contraceptive management; Screening for STDs (sexually transmitted diseases); Encounter for immunization 03/19/2024 Orders Only [facility] [address] [place] [id number] Rose Mary Gomez APRN, WILFRED Generalized anxiety disorder (HRC) (Primary Dx) from Last 3 Months Immunizations Name Administration Dates Next Due 9vHPV (Gardasil 9) 05/01/2024,09/25/2016 DTaP 06/21/2009, 6,2004,10/26,2004 [id number] 09/22/2009,08/16/2009 HepA Ped/Adol (1-18 yrs) 06/12/2007,06/19/2006 HepB Ped/Adol (0-18 yrs) 06/27/2005,2004,1 10/25/2003 Hib (ActHIB) 06/12/2007,2004,2004 IPV (Polio) 06/21/2009, 6,2004,08/24 MMR 06/21/2009,06/27/2005 Meningococcal MCV4, Unspecif ied Formulation 09/25/2016 Pneumococcal 7, PED 06/27/2005, 5,2004,08/24 Tdap 09/25/2016 Varicella 06/21/2009,09/26/2005 Social History Tobacco Use [...] Pulse 72 05/01/2024 8:43 AM CDT Temperature 36.7 ??C (98 ??F) 07/03/2022 5:42 PM CDT Respiratory Rate - - Oxygen Saturation - - Inhaled Oxygen Concentration - - Weight 67.1 kg (148 lb) 05/01/2024 8:43 AM CDT Height 167 cm (5' 5.75) 05/01/2024 8:43 AM CDT Body Mass Index 24.07 05/01/2024 8:43 AM CDT Plan of Treatment Health Maintenance Due Date Last Done Comments HGB 2016 COVID-19 Vaccine ( season) 2024 Influenza (#1) 2024 Adult Preventive Visit 05/01/2025 05/01/2024 Chlamydia 05/01/2025 05/01/2024 DTaP/Tdap/Td (7 - Tdap) 09/25/2026 09/25/19 17, 06/21/2009, 09/26/2005, Additional history exists Zoster/Shingles (1 of 2) 2054 HepB Completed 06/27/2005, 10/10, 2004 Pneumococcal Aged Out 06/27/2005, 12/08, 2004, Additional history exists No longer eligible based on patient's age to complete this topic HepA Completed 06/12/2007, 06/19/2006 Hib Completed 06/12/2007, 10/10, 2004 IPV (Polio) Completed 06/21/2009, 12/08, 2004, Additional history exists Varicella Completed 06/21/2009, 09/26/2005 MCV4 Aged Out 09/25/2016 No longer eligi ble based on patient's age to complete this topic HIV Screening (Preventive Services) Completed 05/01/2024 HPV Vaccine Completed 05/01/2024, 09/25/2016 Hep C Screening (Preventive Services) Completed 05/01/2024 Procedures Procedure Name Priority Date/Time Associated Diagnosis Comments HIV 1/2 AG/AB 4TH GEN Routine 05/01/2024 9:43 AM CDT Screening for HIV (human immunodeficiency virus) HEPATITIS C ANTIBODY, WITH REFLEX Routine 05/01/2024 9:43 AM CDT Need for hepatitis C screening test VITAMIN D 25-HYDROXY, TOTAL Routine 05/01/2024 9:43 AM CDT Generalized anxiety disorder (HRC) VITAMIN B12 ONLY Routine 05/01/2024 9:43 AM CDT Generalized anxiety disorder (HRC) TSH, SENSITIVE Routine 05/01/2024 9:43 AM CDT Generalized anxiety disorder (HRC) FREE T4 Routine 05/01/2024 9:43 AM CDT Generalized anxiety disorder (HRC) T3, FREE Routine 05/01/2024 9:43 AM CDT Generalized anxiety disorder (HRC) COMPREHENSIVE METABOLIC PANEL Routine 05/01/2024 9:43 AM CDT Generalized anxiety disorder (HRC) CBC, NO DIFFERENTIAL REVIEW Routine 05/01/2024 9:43 AM CDT Generalized anxiety disorder (HRC) CHLAMYDIA & GC (14 YEARS & OLDER) Routine 05/01/2024 8:59 AM CDT Routine screening for STI (sexually transmitted infection) from Last 3 Months Results * CBC, No Differential Review (05/01/2024 9:43 AM CDT) WBC 6.3 3.5 - 10.5 x10(9)/L 05/01/2024 4:33 PM CDT [facility] RBC 4.54 3.90 - 5.03 x10(12)/L 05/01/2024 4:33 PM [facility] Hemoglobin 13.1 12.0 - 15.5 g/dL 05/01/2024 4:33 PM [facility] HCT 40.0 34.9 - 44.5 % 05/01/2024 4:33 PM [facility] MCV 88.1 80.0 - 100.0 fL 05/01/2024 4:33 PM [facility] MCH 28.9 27.6 - 33.3 pg 05/01/2024 4:33 PM [facility] MCHC 32.8 31.5 - 35.2 g/dL 05/01/2024 4:33 PM [facility] RDW 11.9 11.9 - 15.5 % 05/01/2024 4:33 PM [facility] Platelets 274 150 - 450 x10(9)/L 05/01/2024 4:33 PM [facility] Automated NRBC 0 <=0 /100 WBC 05/01/2024 4:33 PM [facility] Blood Venipuncture / Unknown 05/01/2024 9:43 AM CDT 05/01/2024 9:43 AM CDT Rose Mary Gomez APRN, CNM LAB_[address] * HIV 1/2 Ag/Ab 4th Generation (05/01/2024 9:43 AM CDT) HIV 1/2 Antigen/Anti body (4th generation) Negative (Non Reactive) Negative (Non Reactive) 05/01/2024 4:03 PM CDT [facility] Comment:HIV-1 p24 Antigen an d HIV-1/HIV-2 Antibody not detected Blood Venipuncture / Unknown 05/01/2024 9:43 AM CDT 05/01/2024 9:43 AM CDT Zeke Mccarty MD LAB_1 [facility] [address] * (ABNORMAL) Vitamin D 25-Hydroxy, Total (05/01/2024 9:43 AM CDT) Vitamin D, 25-OH, Total 22(L) 30 - 80 ng/mL 05/01/2024 3:55 PM CDT [facility] Blood Venipuncture / Unknown 05/01/2024 9:43 AM CDT 05/01/2024 9:43 AM CDT Narrative [facility] - 05/01/2024 3:55 PM CDT Expected values Deficiency: <20 ng/mL Insufficiency: 20-29 ng/mL Optimum: 30-80 ng/mL Possible toxicity: >80 ng/mL Rose Mary Gomez APRN, CNM LAB_1 Performing Organization Address [facility] Co de Phone Number [facility] [address] * T3, Free (05/01/2024 9:43 AM CDT) T3, Free 2.9 1.7 - 3.7 pg/mL 05/01/2024 4:03 PM CDT [facility] Blood Venipuncture / Unknown 05/01/2024 9:43 AM CDT 05/01/2024 9:43 AM CDT Rose Mary Gomez APRN, CNM LAB_1 Performing Organization Address City/[facility]/ZIP Co de Phone Number [facility] [address] * Comp Metabolic Panel (05/01/2024 9:43 AM CDT) Sodium 137 136 - 145 mmol/L 05/01/2024 3:48 PM CDT [facility] Potassium 4.0 3.5 - 5.1 mmol/L 05/01/2024 3:48 PM CDT [facility] Chloride 107 98 - 109 mmol/L [...] 05/01/2024 9:43 AM CDT 05/01/2024 9:43 AM T Rose Mary Gomez APRN, CNM LAB_1 Performing Organization Address City/State/[facility] Co de Phone Number [facility] [address] * TSH (05/01/2024 9:43 AM CDT) [facility] TSH, Sensitive 0.77 0.30 - 4.50 uIU/mL 05/01/2024 4:03 PM CDT [facility] Blood Venipuncture / Unknown 05/01/2024 9:43 AM CDT 05/01/2024 9:43 AM CDT Rose Mary Gomez APRN, CNM LAB_1 Performing Organization Address [facility] Co de Phone Number [facility] [address] * Free T4 (05/01/2024 9:43 AM CDT) [facility] T4, Free 0.9 0.7 - 1.5 ng/dL 05/01/2024 4:03 PM CDT [facility] Blood Venipuncture / Unknown 05/01/2024 9:43 AM CDT 05/01/2024 9:43 AM CDT Rose Mary Gomez APRN, CNM LAB_1 Performing Organization Address [facility] Co de Phone Number [facility] [address] * Hepatitis C Antibody, with Reflex (05/01/2024 9:43 AM CDT) [facility] Hepatitis C Antibody Negative (Non Reactive) Negative (Non Reactive) 05/01/2024 3:52 PM CDT [facility] Comment:Antibodies to HCV no t detected. Does not exclude the possiblity of exposure to HCV. Blood Venipuncture / Unknown 05/01/2024 9:43 AM CDT 05/01/2024 9:43 AM CDT Zeke Mccarty MD LAB_1 Performing Organization Address City/[facility]/ZIP Co de Phone Number [facility] [address] * Vitamin B12 Only (05/01/2024 9:43 AM CDT) Pathologist [facility] Vitamin B12 349 213 - 816 pg/mL 05/01/2024 4:03 PM CDT [facility] Blood Venipuncture / Unknown 05/01/2024 9:43 AM CDT 05/01/2024 9:43 AM CDT Rose Mary Gomez APRN, CNM LAB_1 Performing Organization Address [facility] Co de Phone Number [facility] [address] * Chlamydia & GC (14 Years and Older): Vagina (05/01/2024 8:59 AM CDT) Pathologist [facility] Chlamydia Trachomatis STD Not Detected Not Detected 05/01/2024 3:47 PM CDT [facility] N. gonorrhoeae STD Not Detected Not Detected 05/01/2024 3:47 PM CDT [facility] Swab STD SPECIMEN FROM VAGINA / Unknown Non-blood Collection / Unknown 05/01/2024 8:59 AM CDT 05/01/2024 9:16 AM CDT Narrative [facility] - 05/01/2024 3:47 PM CDT Test performed by Second Floor Operator Mediated Amplification (TMA). Zeke Mccarty MD LAB_1 Performing Organization Address City/[facility] Co de Phone Number [facility] [address] from Last 3 Months Care Teams Dam Tender Relationship Specialty Start Date End Date Self-Referral, Patient, [place] [address] PCP - General 07/03/22
[2024-06-01 02:15] VITALS: BP 118/70; PULSE 71; RESP 20; TEMP 36.7; O2SAT 100
[2024-06-01 02:40] VITALS: BP 118/70; PULSE 71; RESP 20; TEMP 36.7
== END 2024-06-01 02:40 | disposition home or self-care (01) ==
PROVIDERS: Emergency Provider Family Medicine
DX: K80.00 Calculus of gallbladder with acute cholecystitis without obstruction (principal)
CPT/HCPCS: 99283; A9270

== ENCOUNTER 2024-06-01 02:35 | Emergency (ER) | payer OTHER, SELFPAY ==
--- NOTE | 2024-06-01 02:41 | CRLHL7_ITS ---
For Patients: As a result of the Century Cures Act, medical imaging exams and procedure reports are released immediately into your electronic medical record. You may view this report before your referring provider. If you have questions, please contact your health care provider. Indication: Epigastric abdominal pain. Technique: CT of the abdomen and pelvis was performed following the administration of 74 mL Isovue 370. Comparison: None available. Findings: Visualized lung bases: Clear. Liver: No focal liver lesion. Possible trace pericholecystic edema. No biliary ductal dilation. Pancreas: Unremarkable. Spleen: Unremarkable. Adrenals: Unremarkable. Kidneys: Unremarkable. No nephrolithiasis or hydronephrosis. Aorta/IVC: Normal in caliber. Lymph nodes: No lymphadenopathy. Bowel: Nonobstructed bowel. Appendix is not definitively visualized. No localized inflammatory changes. No intraperitoneal free air. Trace pelvic free fluid. Pelvis: Unremarkable. Bones/body wall: Unremarkable for age. Impression: 1. Possible trace pericholecystic edema which may reflect early acute cholecystitis. Recommend correlation for right upper quadrant abdominal pain and ultrasound as clinically indicated. 2. Otherwise, no acute abnormality identified. Please note that all CT scans at this facility use dose modulation, iterative reconstruction, and/or weight-based dosing when appropriate to reduce radiation dose to as low as reasonably achievable. Dictated by Zeynep Mendieta MD @ 06/01/2024 5:19:01 AM (Electronically Signed)
[2024-06-01 02:42] VITALS: BP 148/93; PULSE 78; RESP 20; TEMP 36.7; O2SAT 99; BMI 25.0
--- OUTSIDE RECORDS SUMMARY | 2024-06-01 02:53 | XMS_ITS | Clinical Summary ---
Author Organization [facility] Address [address] [place] [address]. [place] [address] Care Team Providers Care Button Maker Name Role Phone Jazmine Lacey MD Primary Care Provider [phone] Allergies No known active allergies Medications Medication [...] Comments Blood Pressure 102/60 08/09/2018 4:01 PM TELEPHONE SOLICITOR Pulse 57 08/09/2018 4:01 PM TELEPHONE SOLICITOR Temperature 37.1 ??C (98.8 ??F) 08/09/2018 4:01 PM CS T Respiratory Rate 20 06/21/2012 3:43 PM CDT Oxygen Saturation 97% 08/09/2018 4:01 PM TELEPHONE SOLICITOR Inhaled Oxygen Concentration - - Weight 72.1 kg (159 lb) 08/09/2018 4:01 PM TELEPHONE SOLICITOR Height 165.7 cm (5' 5.25) 09/10/2017 2:28 PM CS T Body Mass Index - - Plan of Treatment Not on file Care Teams Button Maker Relationship Specialty Start Date End Date Jazmine Lacey MD PCP - General Pediatrics 09/10/17
--- OUTSIDE RECORDS SUMMARY | 2024-06-01 02:53 | XMS_ITS | Referral Summary ---
Author Organization [facility] Address [address] [place] [address]. [place] [address] Care Team Providers Care Mental Health Nurse Name Role Phone Jazmine Lacey MD Primary Care Provider [phone] Allergies No known active allergies Medications Medication [...] Comments Blood Pressure 102/60 08/09/2018 4:01 PM EXECUTIVE KITCHEN MANAGER Pulse 57 08/09/2018 4:01 PM EXECUTIVE KITCHEN MANAGER Temperature 37.1 ??C (98.8 ??F) 08/09/2018 4:01 PM CS T Respiratory Rate 20 06/21/2012 3:43 PM CDT Oxygen Saturation 97% 08/09/2018 4:01 PM EXECUTIVE KITCHEN MANAGER Inhaled Oxygen Concentration - - Weight 72.1 kg (159 lb) 08/09/2018 4:01 PM EXECUTIVE KITCHEN MANAGER Height 165.7 cm (5' 5.25) 09/10/2017 2:28 PM CS T Body Mass Index - - Plan of Treatment Not on file Care Teams Mental Health Nurse Relationship Specialty Start Date End Date Jazmine Lacey MD PCP - General Pediatrics 09/10/17
--- OUTSIDE RECORDS SUMMARY | 2024-06-01 02:54 | XMS_ITS | Clinical Summary ---
Author Organization [facility] Address [address] [facility] [place] [address] Care Team Providers Care Fire Prevention Engineer Name Role Phone Self-Referral, Patient Primary Care Provider Source Comments You are receiving this document as you are listed as the primary care provider,follow-up provider, or the patient has been referred to you for consultation.This is in compliance with the Medicare and[facility] EHR Incentive Program,which states Providers who transition their patient to another setting of careor provider of care or refers their patient to another provider of care shouldprovide summary care record for each transition of care or referral. Appvance Allergies No known active allergies Medications Medication [...] Description 05/01/2024 9:30 AM CDT Lab Visit [facility] [id number] [place] [id number] Generalized anxiety disorder (HRC); Need for hepatitis C screening test; Screening for HIV (human immunodeficiency virus); Anxiety (HRC) 05/01/2024 8:50 AM CDT Office Visit [facility] [id number] [place] [id number] Zeke Mccarty MD Routine health maintenance (Primary Dx); Routine screening for STI (sexually transmitted infection); Screening for iron deficiency anemia; Need for hepatitis C screening test; Screening for HIV (human immunodeficiency virus); Current moderate episode of major depressive disorder, unspecified whether recurrent (HRC); Anxiety (HRC); Encounter for other contraceptive management; Screening for STDs (sexually transmitted diseases); Encounter for immunization 03/19/2024 Orders Only [facility] [address] [place] [id number] Rose Mary Gomez APRN, WILFRED Generalized anxiety disorder (HRC) (Primary Dx) from Last 3 Months Immunizations Name Administration Dates Next Due 9vHPV (Gardasil 9) 05/01/2024,09/25/2016 DTaP 06/21/2009, 6,2004,10/26,2004 [id number] 09/22/2009,08/16/2009 HepA Ped/Adol (1-18 yrs) 06/12/2007,06/19/2006 HepB [...] - 10.5 x10(9)/L 05/01/2024 4:33 PM CDT [facility] RBC 4.54 3.90 - 5.03 x10(12)/L 05/01/2024 4:33 PM [facility] Hemoglobin 13.1 12.0 - 15.5 g/dL 05/01/2024 4:33 PM [facility] HCT 40.0 34.9 - 44.5 % 05/01/2024 4:33 PM [facility] MCV 88.1 80.0 - 100.0 fL 05/01/2024 4:33 PM [facility] MCH 28.9 27.6 - 33.3 pg 05/01/2024 4:33 PM [facility] MCHC 32.8 31.5 - 35.2 g/dL 05/01/2024 4:33 PM [facility] RDW 11.9 11.9 - 15.5 % 05/01/2024 4:33 PM [facility] Platelets 274 150 - 450 x10(9)/L 05/01/2024 4:33 PM [facility] Automated NRBC 0 <=0 /100 WBC 05/01/2024 4:33 PM [facility] Blood Venipuncture / Unknown 05/01/2024 9:43 AM CDT 05/01/2024 9:43 AM CDT Rose Mary Gomez APRN, CNM LAB_[address] * HIV 1/2 Ag/Ab 4th Generation (05/01/2024 9:43 AM CDT) HIV 1/2 Antigen/Anti body (4th generation) Negative (Non Reactive) Negative (Non Reactive) 05/01/2024 4:03 PM CDT [facility] Comment:HIV-1 p24 Antigen an d HIV-1/HIV-2 Antibody not detected Blood Venipuncture / Unknown 05/01/2024 9:43 AM CDT 05/01/2024 9:43 AM CDT Zkee Mccarty MD LAB_1 [facility] [address] * (ABNORMAL) Vitamin D 25-Hydroxy, Total (05/01/2024 9:43 AM CDT) Vitamin D, 25-OH, Total 22(L) 30 - 80 ng/mL 05/01/2024 3:55 PM CDT [facility] Blood Venipuncture / Unknown 05/01/2024 9:43 AM CDT 05/01/2024 9:43 AM CDT Narrative [facility] - 05/01/2024 3:55 PM CDT Expected values Deficiency: <20 ng/mL Insufficiency: 20-29 ng/mL Optimum: 30-80 ng/mL Possible toxicity: >80 ng/mL Rose Mary Gomez APRN, CNM LAB_1 Performing Organization Address [facility] Co de Phone Number [facility] [address] * T3, Free (05/01/2024 9:43 AM CDT) T3, Free 2.9 1.7 - 3.7 pg/mL 05/01/2024 4:03 PM CDT [facility] Blood Venipuncture / Unknown 05/01/2024 9:43 AM CDT 05/01/2024 9:43 AM CDT Rose Mary Gomez APRN, CNM LAB_1 Performing Organization Address City/[facility]/ZIP Co de Phone Number [facility] [address] * Comp Metabolic Panel (05/01/2024 9:43 AM CDT) Sodium 137 136 - 145 mmol/L 05/01/2024 3:48 PM CDT [facility] Potassium 4.0 3.5 - 5.1 mmol/L 05/01/2024 3:48 PM CDT [facility] Chloride 107 98 - 109 mmol/L 05/01/2024 3:48 PM [facility] CO2 23 20 - 29 mmol/L 05/01/2024 3:48 PM [facility] Anion Gap 7 6 - 16 mmol/L 05/01/2024 3:48 PM [facility] Calcium 9.5 8.4 - 10.4 mg/dL 05/01/2024 3:48 PM [facility] BUN 16 7 - 26 mg/dL 05/01/2024 3:48 PM [facility] Creatinine 0.71 0.55 - 1.02 mg/dL 05/01/2024 3:48 PM [facility] Alkaline Phosphatase 46 40 - 150 U/L 05/01/2024 3:48 PM [facility] AST (SGOT) 17 10 - 40 U/L 05/01/2024 3:48 PM [facility] ALT (SGPT) 18 <=55 U/L 05/01/2024 3:48 PM [facility] Bilirubin, Total 0.4 0.2 - 1.2 mg/dL 05/01/2024 3:48 PM [facility] Protein, Total 7.0 6.4 - 8.3 g/dL 05/01/2024 3:48 PM [facility] Albumin 4.2 3.5 - 5.0 g/dL 05/01/2024 3:48 PM [facility] Glucose 77 70 - 100 mg/dL 05/01/2024 3:48 PM [facility] Comment:The given reference range is for the fasting state. Non-fasting reference range for glucose is 70 - 180 mg/dL. GFR, Estimated >60 >60 mL/min/1. 73m2 05/01/2024 3:48 PM [facility] Hours Fasting 0.1 8 - 12 Hours 05/01/2024 3:48 PM [facility] Blood Venipuncture / Unknown 05/01/2024 9:43 AM CDT 05/01/2024 9:43 AM T Rose Mary Gomez APRN, CNM LAB_1 Performing Organization Address City/State/[facility] Co de Phone Number [facility] [address] * TSH (05/01/2024 9:43 AM CDT) [facility] TSH, Sensitive 0.77 0.30 - 4.50 uIU/mL 05/01/2024 4:03 PM CDT [facility] Blood Venipuncture / Unknown 05/01/2024 9:43 AM CDT 05/01/2024 9:43 AM CDT Rose Mary Gomez APRN, CNM LAB_1 Performing Organization Address [facility] Co de Phone Number [facility] [address] * Free T4 (05/01/2024 9:43 AM CDT) [facility] T4, Free 0.9 0.7 - 1.5 ng/dL 05/01/2024 4:03 PM CDT [facility] Blood Venipuncture / Unknown 05/01/2024 9:43 AM CDT 05/01/2024 9:43 AM CDT Rose Mary Gomez APRN, CNM LAB_1 Performing Organization Address [facility] Co de Phone Number [facility] [address] * Hepatitis C Antibody, with Reflex (05/01/2024 9:43 AM CDT) [facility] Hepatitis C Antibody Negative (Non Reactive) Negative (Non Reactive) 05/01/2024 3:52 PM CDT [facility] Comment:Antibodies to HCV no t detected. Does not exclude the possiblity of exposure to HCV. Blood Venipuncture / Unknown 05/01/2024 9:43 AM CDT 05/01/2024 9:43 AM CDT Zeke Mccarty MD LAB_1 Performing Organization Address City/[facility]/ZIP Co de Phone Number [facility] [address] * Vitamin B12 Only (05/01/2024 9:43 AM CDT) Pathologist [facility] Vitamin B12 349 213 - 816 pg/mL 05/01/2024 4:03 PM CDT [facility] Blood Venipuncture / Unknown 05/01/2024 9:43 AM CDT 05/01/2024 9:43 AM CDT Rose Mary Gomez APRN, CNM LAB_1 Performing Organization Address [facility] Co de Phone Number [facility] [address] * Chlamydia & GC (14 Years and Older): Vagina (05/01/2024 8:59 AM CDT) Pathologist [facility] Chlamydia Trachomatis STD Not Detected Not Detected 05/01/2024 3:47 PM CDT [facility] N. gonorrhoeae STD Not Detected Not Detected 05/01/2024 3:47 PM CDT [facility] Swab STD SPECIMEN FROM VAGINA / Unknown Non-blood Collection / Unknown 05/01/2024 8:59 AM CDT 05/01/2024 9:16 AM CDT Narrative [facility] - 05/01/2024 3:47 PM CDT Test performed by Lead Cook Mediated Amplification (TMA). Zeke Mccarty MD LAB_1 Performing Organization Address City/[facility] Co de Phone Number [facility] [address] from Last 3 Months Care Teams Fire Prevention Engineer Relationship Specialty Start Date End Date Self-Referral, Patient, [place] [address] PCP - General 07/03/22
--- OUTSIDE RECORDS SUMMARY | 2024-06-01 02:54 | XMS_ITS | Encounter Summary ---
Author Organization [facility] Address [address] [address] Care Team Providers Care Rug Dry Room Attendant Name Role Phone Self-Referral, Patient Primary Care Provider Reason for Referral * Consult/Transfer Care (Routine) - New Request Specialty Diagnoses / Procedures Referred By Stefany palma Referred To Contact Diagnoses Encounter for other contraceptive management [place] [id number] [place] [address] Referral ID Status Reason Start Date Expiration Date V isits Requested Visits Authorized [id number] New Request 05/01/2024 07/31/2025 1 1 Scheduling Instructions Your clinician has recommended an appointment with [facility]. You can quickly make your appointment online at Trunity/[email or web address]. You can also call [phone] for help scheduling your appointment. We suggest you call your health insurance company about your coverage and benefits for this appointment. Question Answer Appointment Urgency? Non-Urgent Reason for Visit? Control Comments [place] Reason for Visit * Reason Comments ROUTINE HEALTH MAINTENANCE Encounter Details Date Type Department Care Team (Latest Contact Info) Description 05/01/2024 8:50 AM CDT Office Visit [facility] [id number] [place] [address] [place] [address] [place], [place] [phone] Routine health maintenance (Primary Dx); Routine screening [...] 2000 IU daily Or you can take 34919 IU once a week ( 2 x [...] can you learn more? 1. Go to [email or web address].Trunity/healthlibrary. 2. Enter P072 in the search box. Current as of: April 14, 2023 Content Version: 14.1 ?? Epiclist. Care instructions adapted under license by your healthcare professional. If you have questions about a medical condition or this instruction, always ask your healthcare professional. [employer] disclaims any warranty or liability for your use of this information. EXPO DNA is your genetic information, and it's unique to you. It can also hold the garcia to discovering genetic health risks, creating personalized care and building a healthier community. [employer] is launching myGenetics, a study that looks [...] family and generations to come.If you're a [facility] or Negar Gunter patient over the age of 18, you can take part in the study. Registration is quick and easy, and there is no cost to you. Learn more about [employer] and register at Trunity/Napatech Your privacy is our priority We take [...] medical history: Depression anxiety. Past surgical history: Fields tooth removed Social history: Never smoker. No alcohol or drug use. Lives at home with father and sister. Switches Garcia between mom and dad. They are . Patient quit drinking coffee 2 months ago because the psychiatrist recommended that. She drinks teasometimes. No soda consumption. She will be going to call in next Saturday in [facility]. Family history: Father has had knee surgery. [...] daily. Dispense: 84 Tablet; Refill: 4 - Ob-Investigation Clerk Consult 9. Screening for STDs (sexually transmitted diseases) - Chlamydia & GC (14 Years and Older): Vagina; Future 10. Encounter for immunization - 9Vhpv (Gardasil) Zeke Mccarty MD 05/01/2024, 10:27 AM documented in this encounter Plan of Treatment Scheduled Referrals Name Type Priority Associated Diagnoses Orde r Schedule Ob-Investigation Clerk Consult Referral Routine Encounter for other contraceptive [...] Negative (Non Reactive) 05/01/2024 4:03 PM CDT [facility] Comment:HIV-1 p24 Antigen an d HIV-1/HIV-2 Antibody not detected Blood Venipuncture / Unknown 05/01/2024 9:43 AM CDT 05/01/2024 9:43 AM CDT Zeke Mccarty MD LAB_1 [facility] [address] * Hepatitis C Antibody, with Reflex (05/01/2024 9:43 AM CDT) Hepatitis C Antibody Negative (Non Reactive) Negative (Non Reactive) 05/01/2024 3:52 PM CDT [facility] Comment:Antibodies to HCV no t detected. Does not exclude the possiblity of exposure to HCV. Blood Venipuncture / Unknown 05/01/2024 9:43 AM CDT 05/01/2024 9:43 AM CDT Zeke Mccarty MD LAB_1 Performing Organization Address [facility] Co de Phone Number [facility] [address] * Chlamydia & GC (14 Years and Older): Vagina (05/01/2024 8:59 AM CDT) Chlamydia Trachomatis STD Not Detected Not Detected 05/01/2024 3:47 PM CDT [facility] N. gonorrhoeae STD Not Detected Not Detected 05/01/2024 3:47 PM CDT [facility] Swab STD SPECIMEN FROM VAGINA / Unknown Non-blood Collection / Unknown 05/01/2024 8:59 AM CDT 05/01/2024 9:16 AM CDT Narrative [facility] - 05/01/2024 3:47 PM CDT Test performed by Hotel Operation Manager Mediated Amplification (TMA). Zeke Mccarty MD LAB_1 Performing Organization Address [facility] Co de Phone Number [facility] [address] documented in this encounter Visit Diagnoses [...] disease documented in this encounter Care Teams Rug Dry Room Attendant Relationship Specialty Start Date End Date Self-Referral, [place], [place] [address] PCP - General 07/03/22 documented as of this encounter
--- OUTSIDE RECORDS SUMMARY | 2024-06-01 02:54 | XMS_ITS | Encounter Summary ---
Author Organization [facility] Address [address] [place] [address] Care Team Providers Care Sponge Press Operator Name Role Phone Self-Referral, Patient Primary Care Provider Encounter Details Date Type Department Care Team (Latest Contact Info) Description 05/01/2024 9:30 AM CDT Lab Visit [facility] [address] [employer], [place] [phone] Generalized anxiety disorder (HRC); Need for hepatitis [...] Negative (Non Reactive) 05/01/2024 4:03 PM CDT [facility] Comment:HIV-1 p24 Antigen an d HIV-1/HIV-2 Antibody not detected Blood Venipuncture / Unknown 05/01/2024 9:43 AM CDT 05/01/2024 9:43 AM CDT Zeke Mccarty MD LAB_1 [facility] [address] * Hepatitis C Antibody, with Reflex (05/01/2024 9:43 AM CDT) Hepatitis C Antibody Negative (Non Reactive) Negative (Non Reactive) 05/01/2024 3:52 PM CDT [facility] Comment:Antibodies to HCV no t detected. Does not exclude the possiblity of exposure to HCV. Blood Venipuncture / Unknown 05/01/2024 9:43 AM CDT 05/01/2024 9:43 AM CDT Zeke Mccarty MD LAB_1 Performing Organization Address [facility] Co de Phone Number [facility] [address] * (ABNORMAL) Vitamin D 25-Hydroxy, Total (05/01/2024 9:43 AM CDT) Vitamin D, 25-OH, Total 22(L) 30 - 80 ng/mL 05/01/2024 3:55 PM CDT [facility] Blood Venipuncture / Unknown 05/01/2024 9:43 AM CDT 05/01/2024 9:43 AM CDT Narrative [facility] - 05/01/2024 3:55 PM CDT Expected values Deficiency: <20 ng/mL Insufficiency: 20-29 ng/mL Optimum: 30-80 ng/mL Possible toxicity: >80 ng/mL Rose Mary Gomez APRN, CNM LAB_1 Performing Organization Address [facility] Co de Phone Number [facility] [address] * Vitamin B12 Only (05/01/2024 9:43 AM CDT) Pathologist [facility] Vitamin B12 349 213 - 816 pg/mL 05/01/2024 4:03 PM CDT [facility] Blood Venipuncture / Unknown 05/01/2024 9:43 AM CDT 05/01/2024 9:43 AM CDT Rose Mary Gomez APRN, CNM LAB_1 Performing Organization Address [facility] Co de Phone Number [facility] [address] * TSH (05/01/2024 9:43 AM CDT) TSH, Sensitive 0.77 0.30 - 4.50 uIU/mL 05/01/2024 4:03 PM CDT [facility] Blood Venipuncture / Unknown 05/01/2024 9:43 AM CDT 05/01/2024 9:43 AM CDT Rose Mary Gomez APRN, CNM LAB_1 Performing Organization Address [facility] Co de Phone Number [facility] [address] * Free T4 (05/01/2024 9:43 AM CDT) T4, Free 0.9 0.7 - 1.5 ng/dL 05/01/2024 4:03 PM CDT [facility] Blood Venipuncture / Unknown 05/01/2024 9:43 AM CDT 05/01/2024 9:43 AM CDT Rose Mary Gomez APRN, CNM LAB_1 Performing Organization Address [facility] Co de Phone Number [facility] [address] * T3, Free (05/01/2024 9:43 AM CDT) T3, Free 2.9 1.7 - 3.7 pg/mL 05/01/2024 4:03 PM CDT [facility] Blood Venipuncture / Unknown 05/01/2024 9:43 AM CDT 05/01/2024 9:43 AM CDT Rose Mary Gomez APRN, CNM LAB_1 Performing Organization Address [facility] de Phone Number [facility] [address] * Comp Metabolic Panel (05/01/2024 9:43 AM CDT) Sodium 137 136 - 145 mmol/L 05/01/2024 3:48 PM CDT [facility] Potassium 4.0 3.5 - 5.1 mmol/L 05/01/2024 3:48 PM [facility] Chloride 107 98 - 109 mmol/L 05/01/2024 3:48 PM [facility] CO2 23 20 - 29 mmol/L 05/01/2024 3:48 PM [facility] Anion Gap 7 6 - 16 mmol/L 05/01/2024 3:48 PM [facility] Calcium 9.5 8.4 - 10.4 mg/dL 05/01/2024 3:48 PM [facility] BUN 16 7 - 26 mg/dL 05/01/2024 3:48 PM [facility] Creatinine 0.71 0.55 - 1.02 mg/dL 05/01/2024 3:48 PM [facility] Alkaline Phosphatase 46 40 - 150 U/L 05/01/2024 3:48 PM [facility] AST (SGOT) 17 10 - 40 U/L 05/01/2024 3:48 PM [facility] ALT (SGPT) 18 <=55 U/L 05/01/2024 3:48 PM [facility] Bilirubin, Total 0.4 0.2 - 1.2 mg/dL 05/01/2024 3:48 PM [facility] Protein, Total 7.0 6.4 - 8.3 g/dL 05/01/2024 3:48 PM [facility] Albumin 4.2 3.5 - 5.0 g/dL 05/01/2024 3:48 PM [facility] Glucose 77 70 - 100 mg/dL 05/01/2024 3:48 PM [facility] Comment:The given reference range is for the fasting state. Non-fasting reference range for glucose is 70 - 180 mg/dL. GFR, Estimated >60 >60 mL/min/1. 73m2 05/01/2024 3:48 PM [facility] Hours Fasting 0.1 8 - 12 Hours 05/01/2024 3:48 PM [facility] Blood Venipuncture / Unknown 05/01/2024 9:43 AM CDT 05/01/2024 9:43 AM CDT Rose Mary Gomez APRN, CNM LAB_1 [facility] [address] * CBC, No Differential Review (05/01/2024 9:43 AM CDT) WBC 6.3 3.5 - 10.5 x10(9)/L 05/01/2024 4:33 PM [facility] RBC 4.54 3.90 - 5.03 x10(12)/L 05/01/2024 4:33 PM [facility] Hemoglobin 13.1 12.0 - 15.5 g/dL 05/01/2024 4:33 PM [facility] HCT 40.0 34.9 - 44.5 % 05/01/2024 4:33 PM [facility] MCV 88.1 80.0 - 100.0 fL 05/01/2024 4:33 PM [facility] MCH 28.9 27.6 - 33.3 pg 05/01/2024 4:33 PM [facility] MCHC 32.8 31.5 - 35.2 g/dL 05/01/2024 4:33 PM [facility] RDW 11.9 11.9 - 15.5 % 05/01/2024 4:33 PM [facility] Platelets 274 150 - 450 x10(9)/L 05/01/2024 4:33 PM [facility] Automated NRBC 0 <=0 /100 WBC 05/01/2024 4:33 PM [facility] Blood Venipuncture / Unknown 05/01/2024 9:43 AM CDT 05/01/2024 9:43 AM CDT Rose Mary Gomez APRN, CNM LAB_1 [place] [address], [facility] documented in this encounter Visit Diagnoses Diagnosis Generalized anxiety disorder (HRC) Generalized anxiety disorder Need for hepatitis C screening test Special screening examination for other specified viral diseases Screening for HIV (human immunodeficiency virus) Special screening examination for other specified viral diseases Anxiety (HRC) Anxiety state, unspecified documented in this encounter Care Teams Sponge Press Operator Relationship Specialty Start Date End Date Self-Referral, Patient, [place] [address] PCP - General 07/03/22 documented as of this encounter
--- OUTSIDE RECORDS SUMMARY | 2024-06-01 02:54 | XMS_ITS | Encounter Summary ---
Author Organization [employer] [facility] [facility] [employer] Address [address] [address] Care Team Providers Care Nickel Plater Name Role Phone Self-Referral, Patient Primary Care Provider Encounter Details Date Type Department Care Team (Late st Contact Info) Description 03/19/2024 Orders Only [facility] [address] [place] [address] Rose Mary Gomez, DIRECTOR LEARNING AND DEVELOPMENT, CNM [address] [place], [place] [id number] Generalized anxiety disorder (HRC) (Primary Dx) Social [...] - 80 ng/mL 05/01/2024 3:55 PM CDT [facility] Blood Venipuncture / Unknown 05/01/2024 9:43 AM CDT 05/01/2024 9:43 AM CDT Narrative [facility] - 05/01/2024 3:55 PM CDT Expected values Deficiency: <20 ng/mL Insufficiency: 20-29 ng/mL Optimum: 30-80 ng/mL Possible toxicity: >80 ng/mL Rose Mary Gomez APRN, CNM LAB_1 Performing Organization Address [facility] Co de Phone Number [facility] [address] * Vitamin B12 Only (05/01/2024 9:43 AM CDT) Vitamin B12 349 213 - 816 pg/mL 05/01/2024 4:03 PM CDT [facility] Blood Venipuncture / Unknown 05/01/2024 9:43 AM CDT 05/01/2024 9:43 AM CDT Rose Mary Gomez APRN, CNM LAB_1 Performing Organization Address [facility] Co de Phone Number [facility] [address] * TSH (05/01/2024 9:43 AM CDT) TSH, Sensitive 0.77 0.30 - 4.50 uIU/mL 05/01/2024 4:03 PM CDT [facility] Blood Venipuncture / Unknown 05/01/2024 9:43 AM CDT 05/01/2024 9:43 AM CDT Rose Mary Gomez APRN, CNM LAB_1 Performing Organization Address [facility] Co de Phone Number [facility] [address] * Free T4 (05/01/2024 9:43 AM CDT) T4, Free 0.9 0.7 - 1.5 ng/dL 05/01/2024 4:03 PM CDT [facility] Blood Venipuncture / Unknown 05/01/2024 9:43 AM CDT 05/01/2024 9:43 AM CDT Rose Mary Gomez APRN, CNM LAB_1 [facility] [address] * T3, Free (05/01/2024 9:43 AM CDT) T3, Free 2.9 1.7 - 3.7 pg/mL 05/01/2024 4:03 PM CDT [facility] Blood Venipuncture / Unknown 05/01/2024 9:43 AM CDT 05/01/2024 9:43 AM CDT Rose Mary Gomez APRN, WILFRED LAB_1 Performing Organization Address City/[facility]/ZIP Co de Phone Number [facility] [address] * Comp Metabolic Panel (05/01/2024 9:43 AM CDT) Sodium 137 136 - 145 mmol/L 05/01/2024 3:48 PM CDT [facility] Potassium 4.0 3.5 - 5.1 mmol/L 05/01/2024 3:48 PM T [facility] Chloride 107 98 - 109 mmol/L 05/01/2024 3:48 PM T [facility] CO2 23 20 - 29 mmol/L 05/01/2024 3:48 PM T [facility] Anion Gap 7 6 - 16 mmol/L 05/01/2024 3:48 PM T [facility] Calcium 9.5 8.4 - 10.4 mg/dL 05/01/2024 3:48 PM T [facility] BUN 16 7 - 26 mg/dL 05/01/2024 3:48 PM T [facility] Creatinine 0.71 0.55 - 1.02 mg/dL 05/01/2024 3:48 PM T [facility] Alkaline Phosphatase 46 40 - 150 U/L 05/01/2024 3:48 PM T [facility] AST (SGOT) 17 10 - 40 U/L 05/01/2024 3:48 PM CDT [facility] ALT (SGPT) 18 <=55 U/L 05/01/2024 3:48 PM CDT [facility] Bilirubin, Total 0.4 0.2 - 1.2 mg/dL 05/01/2024 3:48 PM CDT [facility] Protein, Total 7.0 6.4 - 8.3 g/dL 05/01/2024 3:48 PM CDT [facility] Albumin 4.2 3.5 - 5.0 g/dL 05/01/2024 3:48 PM CDT [facility] Glucose 77 70 - 100 mg/dL 05/01/2024 3:48 PM T [facility] Comment:The given reference range is for the fasting state. Non-fasting reference range for glucose is 70 - 180 mg/dL. GFR, Estimated >60 >60 mL/min/1. 73m2 05/01/2024 3:48 PM CDT [facility] Hours Fasting 0.1 8 - 12 Hours 05/01/2024 3:48 PM T [facility] Blood Venipuncture / Unknown 05/01/2024 9:43 AM CDT 05/01/2024 9:43 AM CDT Rose Mary Gomez APRN, CNM LAB_1 Performing Organization Address City/State/[facility] Co de Phone Number [facility] [address] [place] [address], [facility] * CBC, No Differential Review (05/01/2024 9:43 AM CDT) WBC 6.3 3.5 - 10.5 x10(9)/L 05/01/2024 4:33 PM [facility] RBC 4.54 3.90 - 5.03 x10(12)/L 05/01/2024 4:33 PM [facility] Hemoglobin 13.1 12.0 - 15.5 g/dL 05/01/2024 4:33 PM [facility] HCT 40.0 34.9 - 44.5 % 05/01/2024 4:33 PM [facility] MCV 88.1 80.0 - 100.0 fL 05/01/2024 4:33 PM [facility] MCH 28.9 27.6 - 33.3 pg 05/01/2024 4:33 PM [facility] MCHC 32.8 31.5 - 35.2 g/dL 05/01/2024 4:33 PM [facility] RDW 11.9 11.9 - 15.5 % 05/01/2024 4:33 PM [facility] Platelets 274 150 - 450 x10(9)/L 05/01/2024 4:33 PM [facility] Automated NRBC 0 <=0 /100 WBC 05/01/2024 4:33 PM [facility] Blood Venipuncture / Unknown 05/01/2024 9:43 AM CDT 05/01/2024 9:43 AM CDT Rose Mary Gomez APRN, CNM LAB_1 Performing Organization Address City/State/[facility] Co de Phone Number [id number] [place] [address] documented in this encounter Visit Diagnoses Diagnosis Generalized anxiety disorder (HRC)- Primary Generalized anxiety disorder documented in this encounter Care Teams Nickel Plater Relationship Specialty Start Date End Date Self-Referral, Patient, [place] [address] PCP - General 07/03/22 documented as of this encounter
[2024-06-01 02:57] LABS: Basophils Percent Auto 0.4 % (0.0-3.0); Eosinophils Percent Auto 1.2 % (0.0-7.0); Hematocrit 37.8 % (33.0-51.0); Immature Granulocytes Pct Auto 0.2 %; Lymphocytes Percent Auto 18.7 % (20-44); Mean Corpuscular HGB Conc 32 gm/dL (32-36); Mean Corpuscular Hemoglobin 28 pg (26-34); Mean Corpuscular Volume 90 fL (80-100); Monocytes Percent Auto 7.1 % (0.0-11.0); Neutrophils Percent Auto 72.4 % (42.0-72.0); Platelet Count* 342 K/uL (140-440); RDW Coefficient of Variation % 11.9 % (11.5-15.5); Red Blood Count 4.22 m/uL (4.00-5.20); White Blood Count* 12.77 K/uL (4.50-11.00)
[2024-06-01 02:58] LABS: Appearance Urine Cloudy (Clear); Bilirubin Urine Negative (Negative); Blood Urine Trace-lysed (Negative); Color Urine Yellow (Yellow); Glucose Urine Negative (Negative); Ketones Urine Trace (Negative); Leukocyte Esterase Urine Negative (Negative); Nitrite Urine Negative (Negative); Protein Urine Negative (Negative); Specific Gravity Urine 1.025 (1.000-1.030); pH Urine 6.5 (5.0-8.5)
[2024-06-01 03:04] LABS: Slide Review Reflex No
[2024-06-01 03:07] LABS: Ur HCG Qualitative* Negative (Negative)
[2024-06-01 03:08] LABS: Amorphous Sediment Urine Few; Bacteria Urine Moderate; RBC Urine 0-2 (0-2); Squamous Epithelial Cell Urine Moderate (None-Few); WBC Urine 0-2 (0-5)
--- NOTE | 2024-06-01 03:09 | ED_ITS ---
HPI - General Adult General Chief complaint: Abdominal Pain Stated complaint: abdominal pain, symptoms worsening Time Seen by Provider: 06/01/24 02:49 Source: patient Mode of arrival: ambulatory Limitations: no limitations History of Present Illness HPI narrative: Patient was evaluated earlier in in night for epigastric pain and diarrhea. Pain was epigastric in nature radiating to the right side of the abdomen s omewhat. She had a single episode of diarrhea prior to the ED. She was observed for about an hour and a half. She was given oral Tylenol, Zofran, famotidine and Imodium. She reports that her symptoms worsen shortly after discharge, causing her to come back to the ED. Did not try any other interventions. Was discharged home with prescription for Zofran. Pain persists in the same area. She feels like it has become severe suddenly. She did drink quite a bit of water after she was feeling better in the ED prior to discharge. No vomiting. No change in status. No bloody stools, hematemesis, trauma. No prior history of dominant surgeries. Prior notes and clinical course reviewed. Allergy to penicillin, mental health medications unchanged. ROS notable for GI symptoms as above only, otherwise denies times 12 systems. Related Data Home Medications ?Medication ?Instructions ?Recorded ?Confirmed hydroxyzine pamoate 25 mg capsule 25 mg PO DAILY PRN 06/01/24 06/01/24 norethindrone (contraceptive) 0.35 0.35 mg PO DAILY 06/01/24 06/02/24 mg tablet (Alie) sertraline 100 mg tablet 100 mg PO DAILY 06/01/24 06/01/24 Previous Rx's ?Medication ?Instructions ?Recorded oxycodone-acetaminophen 5 mg-325 1 tab PO Q8H PRN pain #7 tabs 06/01/24 mg tablet (Percocet) hydrocodone 5 mg-acetaminophen 325 1 tab PO Q6H PRN pain #5 tabs 06/02/24 mg tablet Allergies Allergy/AdvReac Type Severity Reaction Status Date / Time Penicillins Allergy Mild Hives Verified 06/02/24 08:09 [facility] Medical History Depression ?F32.A - Depression, unspecified (ICD-10) Anxiety ?F41.9 - Anxiety disorder, unspecified (ICD-10) Surgical History History of wisdom tooth extraction ?K08.409 - Partial loss of teeth, unspecified cause, unspecified class (ICD- 10) Social History Smoking Status: Never smoker Second hand tobacco smoke exposure: No How often do you have a drink containing alcohol: never AUDIT-C Alcohol total score: 0 Non-prescribed substance use: denies use Caffeine: No Are you using contraception or practicing any form of control: Yes Exam Const: Vital Signs, click to edit/add: Vital Signs - 24 hr 06/01/24 02:42 06/01/24 05:11 Temperature 98.0 F 98.0 F Pulse Rate [Right Pulse Oximeter] 78 68 Respiratory Rate 20 20 Blood Pressure [Ri ght Upper Arm] 148/93 H 128/74 Pulse Oximetry 99 99 Oxygen Delivery Me thod Room Air Room Air Documenting provider has reviewed patient's vital signs: yes Common normals: no apparent distress General appearance: cooperative and well kempt Other: Spasm of pain has since improved quite a bit again and comfortable at the time of my assessment HENMT: Common normals: normocephalic, moist oral mucous membranes and dentition normal Head and scalp: normocephalic Face and sinus: normal facial exam Eye: Common normals: conjunctivae normal General eye: normal appearance of both eyes Conjunctiva: conjunctiva(e) normal Resp: Common normals: normal respiratory effort and clear to auscultation bilaterally Effort & inspection: able to speak in complete sentences Auscultation: clear to auscultation bilaterally Cardio: Common normals: regular rate, regular rhythm, S1 normal heart sound, S2 normal heart sound and no murmurs Rate: regular rate Rhythm: regular rhythm Heart sounds: S1 normal and S2 normal GI: Common normals: Normal to inspection, nondistended, normoactive bowel sounds present, soft to palpation, no hepatosplenomegaly and no masses Palpation: soft and no hepatosplenomegaly Other: Mildly tender to epigastrium and also right upper quadrant this time. Certainly no rebound tenderness or guarding. No mass Extremity: Common normals: normal to inspection and normal capillary refill Psych: Appearance: well kempt Activity/motor behavior: appropriate eye contact Mood and affect: euthymic mood Insight: insight good Judgement: judgment good Skin: Common normals: no rashes or lesions noted General skin exam: no rashes or lesions noted Course Course ED Course: 18-year-old female with 2 hours of epigastric area abdominal pain and single bout of diarrhea. Exam is still suspicious for gastroenteritis, cannot exclude gallbladder disease, gallstone, pancreatitis, obstruction, volvulus, amongst others. Pain does seem out of proportion to exam. Patient is quite distressed by this. Will obtain typical abdominal labs, CT of the abdomen and pelvis, pr egnancy test. Await findings. Reevaluation(s) Time of Reevaluation #1: 05:25 Reevaluation #1: [address] results. There is a little bit of pericholecystic fluid, could indicate early cholecystitis. Will obtain ultrasound for clarity. Updated patient on findings. Mild nonobstructive elevation of liver enzymes with very mild leukocytosis, no fever or other signs of sepsis. Patient is comfortable again, has not required any interventions. Will keep NPO an order abdominal ultrasound. Even if there is an early cholecystitis, would recommend surgical consult. Symptoms very intermittent, no fever or high white count. Could potentially be a candidate for antibiotics versus surgical management. Could certainly also be gastroenteritis as her initial presentation was suggestive. Await ultrasound findings. Time of Reevaluation #2: 07:05 Reevaluation #2: Preliminary ultrasound images have been reviewed. Awaiting final response. I did discuss my preliminary thoughts with the findings of the ultrasound with patient. There are few gallstones but I would do not think that those are likely the source of her symptoms today. I still think this is more of a gastroenteritis. It may also be so early in the process that were just not seeing a lot of clinical findings. I would want her to watch her symptoms closely for the next 24 hours. She may continue Tylenol and ibuprofen as needed for discomfort. Continue the Zofran that we previously discussed for nausea, Imodium if needed. Slowly advance diet. If there is an early cholecystitis, I would watch closely for persistent pain, fever, nausea and vomiting all as symptoms that she should come back to the ED. gallbladder attacks can be common in women but may not require surgical management. Written instructions provided. Will hand over care to an coming day shift partner, Dr. Joy, awaiting formal ultrasound results. Vital Signs Vital signs: Initial Vital Signs Temperature 98.0 F 06/01/24 02:42 Temperature Source Temporal Artery Scan 06/01/24 02:42 Pulse Rate 78 06/01/24 02:42 Respiratory Rate 20 06/01/24 02:42 Blood Pressure 148/93 H 06/01/24 02:42 Blood Pressure Mean 111 H 06/01/24 02:42 Blood Pressure Position Sitting 06/01/24 02:42 Pulse Oximetry 99 06/01/24 02:42 Oxygen Delivery Method Room Air 06/01/24 02:42 Vital Signs Temperature 98.0 F 06/01/24 02:42 Pulse Rate 78 06/01/24 02:42 Respiratory Rate 20 06/01/24 02:42 Blood Pressure 148/93 H 06/01/24 02:42 Pulse Oximetry 99 06/01/24 02:42 Oxygen Delivery Method Room Air 06/01/24 02:42 Temperature 98.0 F 06/01/24 05:11 Pulse Rate 68 06/01/24 05:11 Respiratory Rate 20 06/01/24 05:11 Blood Pressure 128/74 06/01/24 05:11 Pulse Oximetry 99 06/01/24 05:11 Oxygen Delivery Method Room Air 06/01/24 05:11 Medical Decision Making Lab Data Lab results reviewed: Yes I reviewed the patient's lab results Lab results narrative: Mild leukocytosis and mild elevation of liver enzymes without elevation in CRP or bilirubin. Not suggestive of a obstructive process but could be suggestive of a viral, inflammatory or infectious process. Labs: Lab Results 06/01/24 06/01/24 Range/Units 02:42 02:48 WBC 12.77 H (4.50-11.00) K/uL RBC 4.22 (4.00-5.20) m/uL Hgb 12.0 (12.0-16.0) gm/dL Hct 37.8 (33.0-51.0) % MCV 90 (80-100) fL MCH 28 (26-34) pg MCHC 32 (32-36) gm/dL RDW Coeff of Michael 11.9 (11.5-15.5) % Plt Count 342 (140-440) K/uL Neut % (Auto) 72.4 H (42.0-72.0) % Lymph % (Auto) 18.7 L (20-44) % Mcpherson % (Auto) 7.1 (0.0-11.0) % Eos % (Auto) 1.2 (0.0-7.0) % Baso % (Auto) 0.4 (0.0-3.0) % Neut # (Auto) 9.20 H (1.7-7.0) K/uL Lymph # (Auto) 2.40 (0.90-2.90) K/uL Mcpherson # (Auto) 0.90 (0.00-0.90) K/UL Eos # (Auto) 0.20 (0.00-0.50) K/uL Baso # (Auto) 0.10 (0.00-0.30) K/uL Abs Immat Gran (auto) 0.00 (0.00-0.30) K/uL Imm/Tot Granulo (auto) 0.2 % Sodium 138 (135-149) mmol/L Potassium 3.7 (3.6-5.1) mmol/L Chloride 104 (96-114) mmol/L Carbon Dioxide 25 (20-32) mmol/L Anion Gap 9 (7-15) mEq/L BUN 17 (5-24) mg/dL Creatinine 0.8 (0.6-1.2) mg/dL Estimated Creat Clear 101.78 Estimated GFR 109 ml/min Glucose 105 (60-115) mg/dL Calcium 9.4 (8.7-10.8) mg/dL Total Bilirubin 0.3 (0.1-1.5) mg/dL AST 68 H (12-35) U/L ALT 112 H (4-35) U/L Alkaline Phosphatase 92 (40-150) U/L C-Reactive Protein < 0.5 L (0.5-1.0) mg/dL Total Protein 8.0 (6.0-8.3) g/dL Albumin 4.9 (3.3-5.0) g/dL Lipase 80 (23-300) U/L Urine Color Yellow (Yellow) Urine Appearance Cloudy A (Clear) Urine pH 6.5 (5.0-8.5) Ur Specific [place] 1.025 (1.000-1.030) Urine Protein Negative (Negative) Urine Glucose (UA) Negative (Negative) Urine Ketones Trace A (Negative) Urine Blood Trace-lysed A (Negative) Urine Nitrite Negative (Negative) Urine Bilirubin Negative (Negative) Urine Urobilinogen 1.0 (0.2-1.0) Ur Leukocyte Esterase Negative (Negative) Urine RBC 0-2 (0-2) Urine WBC 0-2 (0-5) Ur Squamous Epith Cells Moderate A (None-Few) Amorphous Sediment Few A (None) Urine Bacteria Moderate A (None) Urine HCG, Qual Negative (Negative) Imaging Data CT scan - abdomen: Attestation: I have reviewed the pertinent imaging results. My impression: Appears to be a focal thickened area the gallbladder wall and some surrounding fluid. Questioning an early cholecystitis. No obvious gallstone, appendicitis, obstructive bowel pattern. Radiologist's impression: Impression: 1. Possible trace pericholecystic edema which may reflect early acute cholecystitis. Recommend correlation for right upper quadrant abdominal pain and ultrasound as clinically indicated. 2. Otherwise, no acute abnormality identified. Right upper quadrant ultrasound: Attestation: I have reviewed the pertinent imaging results. My impression: Sludge and very small stones but no biliary obstruction, thickening of the wall or other findings that would be consistent with acute cholecystitis. Discharge Plan Discharge Clinical Impression: Gastroenteritis, Gallstones Patient Disposition: Home w/ Parent or Adult Condition: Stable Instructions: Gallstones (ED), Gastroenteritis (DC) Additional Instructions: Scheduled for surgery at the [facility] on 06/02 with an 8am arrival time. Please enter through the ER and take a left to the Surgery Center. You are allowed to bring up to 2 people with you. Nothing to eat or drink 8 hours before your surgery time. If you have any questions, please call [phone]. Activity Level: No Restrictions Discharge Diet: Regular Prescriptions: New oxycodone-acetaminophen [Percocet] 5-325 mg tablet 1 tab PO Q8H PRN (Reason: pain) Qty: 7 0RF No Action sertraline 100 mg tablet 100 mg PO DAILY hydroxyzine pamoate 25 mg capsule 25 mg PO DAILY PRN norethindrone (contraceptive) [Alie] 0.35 mg tablet 0.35 mg PO DAILY hydrocodone-acetaminophen 5-325 mg tablet 1 tab PO Q6H PRN (Reason: pain) Qty: 5 0RF Rx Instructions: Start [place] when run out of Percocet, as needed Follow Up/Referrals: Provider,Not a Local [Primary Care Provider] - Stand Alone Forms: [facility] Info Instructions
[2024-06-01 03:16] LABS: Albumin* 4.9 g/dL (3.3-5.0); Chloride* 104 mmol/L (96-114)
[2024-06-01 03:17] LABS: Potassium* 3.7 mmol/L (3.6-5.1); Sodium* 138 mmol/L (135-149)
[2024-06-01 03:19] LABS: Alkaline Phosphatase* 92 U/L (40-150); Anion Gap 9 mEq/L (7-15); Aspartate Amino Transferase* 68 U/L (12-35); Bilirubin Total* 0.3 mg/dL (0.1-1.5); Carbon Dioxide* 25 mmol/L (20-32); Creatinine* 0.8 mg/dL (0.6-1.2); Est. Creatinine Clearance* 101.78; Estimated Glomerular Filt Rate 109 ml/min; Lipase* 80 U/L (23-300)
[2024-06-01 03:20] LABS: Alanine Aminotransferase* 112 U/L (4-35); Blood Urea Nitrogen* 17 mg/dL (5-24); Calcium* 9.4 mg/dL (8.7-10.8); Glucose* 105 mg/dL (60-115)
[2024-06-01 03:27] LABS: C Reactive Protein* < 0.5 mg/dL (0.5-1.0)
[2024-06-01 05:11] VITALS: BP 128/74; PULSE 68; RESP 20; TEMP 36.7; O2SAT 99
--- NOTE | 2024-06-01 05:19 | CRLHL7_ITS ---
For Patients: As a result of the Century Cures Act, medical imaging exams and procedure reports are released immediately into your electronic medical record. You may view this report before your referring provider. If you have questions, please contact your health care provider. Indication: Right upper quadrant abdomen pain TECHNIQUE: Ultrasound abdomen limited. Sonographic images of the right upper quadrant were obtained using mathew-scale and color Doppler images. Comparison: None FINDINGS: Gallbladder: Multiple layering gallstones and trace gallbladder sludge with gallbladder wall thickness upper normal. No pericholecystic fluid. Common bile duct: 3 mm. Impression: Cholelithiasis and gallbladder sludge without sonographic evidence of cholecystitis. Dictated by Saul Fitzpatrick MD @ 06/01/2024 7:09:18 AM (Electronically Signed)
--- NOTE | 2024-06-01 08:51 | P.GSHP_ITS ---
History of Present Illness History of Present Illness Date Seen: 06/01/24 Chief complaint: abdominal pain, symptoms worsening Narrative: Kellie Driscoll is a 18 year old female presented to emergency room with right upper quadrant pain. Patient states that her pain started last night. She had [employer] fries for dinner. The pain was so severe that she presented to the emergency room. She denies any nausea or vomiting. Earlier in the day she had loose stool after eating. She has not had anything similar in the past. Since patient's pain has improved, she was discharged home. While waiting in the waiting room for her ride, her pain came back and was severe again. Patient was then re-admitted to emergency room. I personally reviewed her workup. Her liver function tests were mildly elevated with AST of 68 and ALT of 112, her total bilirubin was normal. Her WBC was 12.7 . Other labs were unremarkable. Abdominal CT was then obtained that showed possible trace of pericholecystic fluid with no dilated loops of small or large intestine. An ultrasound was then obtained that showed cholelithiasis with gallbladder sludge. there was no pericholecystic fluid. Common bile duct was 3 mm. Patient currently states that her pain is gone. However, throughout the night she had episodes of milder pain that would return and get better. Patient denies any acid reflux. Review of Systems Narrative: General: no fevers HENT: no problems swallowing CV: no shortness of breath Resp: no cough GI: No nausea, vomiting, abdominal pain : no dysuria, no increased urinary frequency, no hematuria Skin: no new rashes Musculoskeletal: no back pain Neuro: no muscle weakness Psyche: no depression, no anxiety PFSH PFSH Medical History Depression ?F32.A - Depression, unspecified (ICD-10) Anxiety ?F41.9 - Anxiety disorder, unspecified (ICD-10) Surgical History History of wisdom tooth extraction ?K08.409 - Partial loss of teeth, unspecified cause, unspecified class (ICD- 10) Social History Smoking Status: Never smoker Second hand tobacco smoke exposure: No How often do you have a drink containing alcohol: never AUDIT-C Alcohol total score: 0 Non-prescribed substance use: denies use Meds Home Medications and Allergies Home Medications ?Medication ?Instructions ?Recorded ?Confirmed ?Type hydroxyzine pamoate 25 mg capsule 25 mg PO DAILY PRN 06/01/24 06/01/24 History norethindrone (contraceptive) 0.35 0.35 mg PO DAILY 06/01/24 06/01/24 History mg tablet (Alie) sertraline 100 mg tablet 100 mg PO DAILY 06/01/24 06/01/24 History Allergies Allergy/AdvReac Type Severity Reaction Status Date / Time Penicillins Allergy Mild Hives Verified 06/01/24 03:10 Exam Narrative: Exam Narrative: General appearance: Alert, cooperative, and in no distress Pulmonary: Chest symmetric, lungs clear bilaterally Cardiovascular Heart: Regular rate and rhythm, S1, S2, no murmurs/rubs/gallops Gastrointestinal Abdominal: soft, not distended, Patient has mild tenderness to palpation in the right upper quadrant and epigastrium with negative Landis sign. Skin: Normal skin color, texture, and turgor. No rashes or lesions. Psychiatric: Alert, cooperative, normal affect. Const: Vital Signs, click to edit/add: Vital Signs - 24 hr 06/01/24 02:42 06/01/24 05:11 Temperature 98.0 F 98.0 F Pulse Rate [Right Pulse Oximeter] 78 68 Respiratory Rate 20 20 Blood Pressure [Ri ght Upper Arm] 148/93 H 128/74 Pulse Oximetry 99 99 Oxygen Delivery Me thod Room Air Room Air Progress Note:A&P Assessment and plan (1) Cholecystitis, acute: Status: Acute Assessment and Plan: 18-year-old female presents with right upper quadrant abdominal pain that is likely due to acute cholecystitis. I discussed with the patient and her boyfriend her laboratory findings and her imaging findings. Patient has small amount of pericholecystic fluid and elevated WBC. On clinical exam she has tenderness to palpation in right upper quadrant with negative Landis sign. I discussed with the patient that I suspect she might have early acute cholecystitis. I recommended to proceed with laparoscopic cholecystectomy. The procedure was discussed in detail. The risks associated procedure including infection, bleeding, injury to intra-abdominal organs, and injury to the common bile duct were all discussed with the patient, and she agreed to proceed. Since patient's pain is significantly improved, we will discharge her home and bring her back for outpatient cholecystectomy tomorrow. All questions were answered.
== END 2024-06-01 09:26 | disposition home or self-care (01) ==
PROVIDERS: Family Medicine; Emergency Provider Student in an Organized Health Care Education/Training Program
DX: K80.00 Calculus of gallbladder with acute cholecystitis without obstruction (principal)
CPT/HCPCS: 36415; 74177; 76705; 80053; 81001; 81003; 81025; 83690; 85025; 86140; 87086; 99283; 99284; A9270; Q9967

== ENCOUNTER 2024-06-02 07:46 | Day surgery (SDC) | payer OTHER, SELFPAY ==
[2024-06-02] VITALS (13 sets, daily range): BP systolic 109–133; BP diastolic 60–82; PULSE 67–99; RESP 13–16; TEMP 36.2–36.7; O2SAT 96–99; BMI 25.0
--- OUTSIDE RECORDS SUMMARY | 2024-06-02 07:50 | XMS_ITS | Clinical Summary ---
Author Organization [facility] Address [address] [place] [address] Care Team Providers Care Process Design Engineer Name Role Phone Self-Referral, Patient Primary Care Provider Source Comments You are receiving this document as you are listed as the primary care provider,follow-up provider, or the patient has been referred to you for consultation.This is in compliance with the Medicare and[facility] EHR Incentive Program,which states Providers who transition their patient to another setting of careor provider of care or refers their patient to another provider of care shouldprovide summary care record for each transition of care or referral. [facility] Allergies No known active allergies Medications Medication [...] Description 05/01/2024 9:30 AM CDT Lab Visit [facility] [address] [place] [address] Generalized anxiety disorder (HRC); Need for hepatitis C screening test; Screening for HIV (human immunodeficiency virus); Anxiety (HRC) 05/01/2024 8:50 AM CDT Office Visit [facility] [id number] [place] [address] Zeke Mccarty MD Routine health maintenance (Primary Dx); Routine screening for STI (sexually transmitted infection); Screening for iron deficiency anemia; Need for hepatitis C screening test; Screening for HIV (human immunodeficiency virus); Current moderate episode of major depressive disorder, unspecified whether recurrent (HRC); Anxiety (HRC); Encounter for other contraceptive management; Screening for STDs (sexually transmitted diseases); Encounter for immunization 03/19/2024 Orders Only [facility] [address] [place] [id number] Rose Mary Gomez APRN, WILFRED Generalized anxiety disorder (HRC) (Primary Dx) from Last 3 Months Immunizations Name Administration Dates Next Due 9vHPV (Gardasil 9) 05/01/2024,09/25/2016 DTaP 06/21/2009, 6,2004,10/26,2004 [id number] 09/22/2009,08/16/2009 HepA Ped/Adol (1-18 yrs) 06/12/2007,06/19/2006 HepB [...] - 10.5 x10(9)/L 05/01/2024 4:33 PM CDT [facility] RBC 4.54 3.90 - 5.03 x10(12)/L 05/01/2024 4:33 PM [facility] Hemoglobin 13.1 12.0 - 15.5 g/dL 05/01/2024 4:33 PM [facility] HCT 40.0 34.9 - 44.5 % 05/01/2024 4:33 PM [facility] MCV 88.1 80.0 - 100.0 fL 05/01/2024 4:33 PM [facility] MCH 28.9 27.6 - 33.3 pg 05/01/2024 4:33 PM [facility] MCHC 32.8 31.5 - 35.2 g/dL 05/01/2024 4:33 PM [facility] RDW 11.9 11.9 - 15.5 % 05/01/2024 4:33 PM [facility] Platelets 274 150 - 450 x10(9)/L 05/01/2024 4:33 PM [facility] Automated NRBC 0 <=0 /100 WBC 05/01/2024 4:33 PM [facility] Blood Venipuncture / Unknown 05/01/2024 9:43 AM CDT 05/01/2024 9:43 AM CDT Rose Mary Gomez APRN, CNM LAB_[address] * HIV 1/2 Ag/Ab 4th Generation (05/01/2024 9:43 AM CDT) HIV 1/2 Antigen/Anti body (4th generation) Negative (Non Reactive) Negative (Non Reactive) 05/01/2024 4:03 PM CDT [facility] Comment:HIV-1 p24 Antigen an d HIV-1/HIV-2 Antibody not detected Blood Venipuncture / Unknown 05/01/2024 9:43 AM CDT 05/01/2024 9:43 AM CDT Zeke Mccarty MD LAB_1 [facility] [address] * (ABNORMAL) Vitamin D 25-Hydroxy, Total (05/01/2024 9:43 AM CDT) Vitamin D, 25-OH, Total 22(L) 30 - 80 ng/mL 05/01/2024 3:55 PM CDT [facility] Blood Venipuncture / Unknown 05/01/2024 9:43 AM CDT 05/01/2024 9:43 AM CDT Narrative [facility] - 05/01/2024 3:55 PM CDT Expected values Deficiency: <20 ng/mL Insufficiency: 20-29 ng/mL Optimum: 30-80 ng/mL Possible toxicity: >80 ng/mL Rose Mary Gomez APRN, CNM LAB_1 Performing Organization Address [facility] Co de Phone Number [facility] [address] * T3, Free (05/01/2024 9:43 AM CDT) T3, Free 2.9 1.7 - 3.7 pg/mL 05/01/2024 4:03 PM CDT [facility] Blood Venipuncture / Unknown 05/01/2024 9:43 AM CDT 05/01/2024 9:43 AM CDT Rose Mary Gomez APRN, CNM LAB_1 Performing Organization Address City/[facility]/ZIP Co de Phone Number [facility] [address] * Comp Metabolic Panel (05/01/2024 9:43 AM CDT) Sodium 137 136 - 145 mmol/L 05/01/2024 3:48 PM CDT [facility] Potassium 4.0 3.5 - 5.1 mmol/L 05/01/2024 3:48 PM CDT [facility] Chloride 107 98 - 109 mmol/L 05/01/2024 3:48 PM [facility] CO2 23 20 - 29 mmol/L 05/01/2024 3:48 PM [facility] Anion Gap 7 6 - 16 mmol/L 05/01/2024 3:48 PM [facility] Calcium 9.5 8.4 - 10.4 mg/dL 05/01/2024 3:48 PM [facility] BUN 16 7 - 26 mg/dL 05/01/2024 3:48 PM [facility] Creatinine 0.71 0.55 - 1.02 mg/dL 05/01/2024 3:48 PM [facility] Alkaline Phosphatase 46 40 - 150 U/L 05/01/2024 3:48 PM [facility] AST (SGOT) 17 10 - 40 U/L 05/01/2024 3:48 PM [facility] ALT (SGPT) 18 <=55 U/L 05/01/2024 3:48 PM [facility] Bilirubin, Total 0.4 0.2 - 1.2 mg/dL 05/01/2024 3:48 PM [facility] Protein, Total 7.0 6.4 - 8.3 g/dL 05/01/2024 3:48 PM [facility] Albumin 4.2 3.5 - 5.0 g/dL 05/01/2024 3:48 PM [facility] Glucose 77 70 - 100 mg/dL 05/01/2024 3:48 PM [facility] Comment:The given reference range is for the fasting state. Non-fasting reference range for glucose is 70 - 180 mg/dL. GFR, Estimated >60 >60 mL/min/1. 73m2 05/01/2024 3:48 PM [facility] Hours Fasting 0.1 8 - 12 Hours 05/01/2024 3:48 PM [facility] Blood Venipuncture / Unknown 05/01/2024 9:43 AM CDT 05/01/2024 9:43 AM T Rose Mary Gomez APRN, CNM LAB_1 Performing Organization Address City/State/[facility] Co de Phone Number [facility] [address] * TSH (05/01/2024 9:43 AM CDT) [facility] TSH, Sensitive 0.77 0.30 - 4.50 uIU/mL 05/01/2024 4:03 PM CDT [facility] Blood Venipuncture / Unknown 05/01/2024 9:43 AM CDT 05/01/2024 9:43 AM CDT Rose Mary Gomez APRN, CNM LAB_1 Performing Organization Address [facility] Co de Phone Number [facility] [address] * Free T4 (05/01/2024 9:43 AM CDT) [facility] T4, Free 0.9 0.7 - 1.5 ng/dL 05/01/2024 4:03 PM CDT [facility] Blood Venipuncture / Unknown 05/01/2024 9:43 AM CDT 05/01/2024 9:43 AM CDT Rose Mary Gomez APRN, CNM LAB_1 Performing Organization Address [facility] Co de Phone Number [facility] [address] * Hepatitis C Antibody, with Reflex (05/01/2024 9:43 AM CDT) [facility] Hepatitis C Antibody Negative (Non Reactive) Negative (Non Reactive) 05/01/2024 3:52 PM CDT [facility] Comment:Antibodies to HCV no t detected. Does not exclude the possiblity of exposure to HCV. Blood Venipuncture / Unknown 05/01/2024 9:43 AM CDT 05/01/2024 9:43 AM CDT Zeke Mccarty MD LAB_1 Performing Organization Address City/[facility]/ZIP Co de Phone Number [facility] [address] * Vitamin B12 Only (05/01/2024 9:43 AM CDT) Pathologist [facility] Vitamin B12 349 213 - 816 pg/mL 05/01/2024 4:03 PM CDT [facility] Blood Venipuncture / Unknown 05/01/2024 9:43 AM CDT 05/01/2024 9:43 AM CDT Rose Mary Gomez APRN, CNM LAB_1 Performing Organization Address [facility] Co de Phone Number [facility] [address] * Chlamydia & GC (14 Years and Older): Vagina (05/01/2024 8:59 AM CDT) Pathologist [facility] Chlamydia Trachomatis STD Not Detected Not Detected 05/01/2024 3:47 PM CDT [facility] N. gonorrhoeae STD Not Detected Not Detected 05/01/2024 3:47 PM CDT [facility] Swab STD SPECIMEN FROM VAGINA / Unknown Non-blood Collection / Unknown 05/01/2024 8:59 AM CDT 05/01/2024 9:16 AM CDT Narrative [facility] - 05/01/2024 3:47 PM CDT Test performed by [employer] Mediated Amplification (TMA). Zeke Mccarty MD LAB_1 Performing Organization Address City/[facility] Co de Phone Number [facility] [address] from Last 3 Months Care Teams Process Design Engineer Relationship Specialty Start Date End Date Self-Referral, Patient, [place] [address] PCP - General 07/03/22
--- OUTSIDE RECORDS SUMMARY | 2024-06-02 07:50 | XMS_ITS | Referral Summary ---
Author Organization [facility] Address [address] [place] [address]. [place] [address] Care Team Providers Care Renewable Energy Technician Name Role Phone Jazmine Lacey MD Primary Care Provider [phone] Allergies No known active allergies Medications Medication [...] Comments Blood Pressure 102/60 08/09/2018 4:01 PM BOWL ATTENDANT Pulse 57 08/09/2018 4:01 PM BOWL ATTENDANT Temperature 37.1 ??C (98.8 ??F) 08/09/2018 4:01 PM CS T Respiratory Rate 20 06/21/2012 3:43 PM CDT Oxygen Saturation 97% 08/09/2018 4:01 PM BOWL ATTENDANT Inhaled Oxygen Concentration - - Weight 72.1 kg (159 lb) 08/09/2018 4:01 PM BOWL ATTENDANT Height 165.7 cm (5' 5.25) 09/10/2017 2:28 PM CS T Body Mass Index - - Plan of Treatment Not on file Care Teams Renewable Energy Technician Relationship Specialty Start Date End Date Jazmine Lacey MD PCP - General Pediatrics 09/10/17
--- OUTSIDE RECORDS SUMMARY | 2024-06-02 07:50 | XMS_ITS | Clinical Summary ---
Author Organization [facility] Address [address] [place] [address]. [place] [address] Care Team Providers Care Spa Director/Finance Name Role Phone Jazmine Lacey MD Primary Care Provider [phone] Allergies No known active allergies Medications Medication [...] Comments Blood Pressure 102/60 08/09/2018 4:01 PM FIELD SPEC Pulse 57 08/09/2018 4:01 PM FIELD SPEC Temperature 37.1 ??C (98.8 ??F) 08/09/2018 4:01 PM CS T Respiratory Rate 20 06/21/2012 3:43 PM CDT Oxygen Saturation 97% 08/09/2018 4:01 PM FIELD SPEC Inhaled Oxygen Concentration - - Weight 72.1 kg (159 lb) 08/09/2018 4:01 PM FIELD SPEC Height 165.7 cm (5' 5.25) 09/10/2017 2:28 PM CS T Body Mass Index - - Plan of Treatment Not on file Care Teams Spa Director/Finance Relationship Specialty Start Date End Date Jazmine Lacey MD PCP - General Pediatrics 09/10/17
--- OUTSIDE RECORDS SUMMARY | 2024-06-02 07:50 | XMS_ITS | Encounter Summary ---
Author Organization [employer] Address [address], [place] [address] Care Team Providers Care Cloth Opener Hand Name Role Phone Self-Referral, Patient Primary Care Provider Encounter Details Date Type Department Care Team (Late st Contact Info) Description 03/19/2024 Orders Only [facility] [address] [place] [address] Rose Mary Gomez, RESTORATIVE REHAB AIDE, CNM [address] [place], [place] [phone] Generalized anxiety disorder (HRC) (Primary Dx) Social [...] - 80 ng/mL 05/01/2024 3:55 PM CDT [facility] Blood Venipuncture / Unknown 05/01/2024 9:43 AM CDT 05/01/2024 9:43 AM CDT Narrative [facility] - 05/01/2024 3:55 PM CDT Expected values Deficiency: <20 ng/mL Insufficiency: 20-29 ng/mL Optimum: 30-80 ng/mL Possible toxicity: >80 ng/mL Rose Mary Gomez APRN, CNM LAB_1 Performing Organization Address [facility] Co de Phone Number [facility] [address] * Vitamin B12 Only (05/01/2024 9:43 AM CDT) Vitamin B12 349 213 - 816 pg/mL 05/01/2024 4:03 PM CDT [facility] Blood Venipuncture / Unknown 05/01/2024 9:43 AM CDT 05/01/2024 9:43 AM CDT Rose Mary Goemz APRN, CNM LAB_1 Performing Organization Address [facility] Co de Phone Number [facility] [address] * TSH (05/01/2024 9:43 AM CDT) TSH, Sensitive 0.77 0.30 - 4.50 uIU/mL 05/01/2024 4:03 PM CDT [facility] Blood Venipuncture / Unknown 05/01/2024 9:43 AM CDT 05/01/2024 9:43 AM CDT Rose Mary Gomez APRN, CNM LAB_1 Performing Organization Address [facility] Co de Phone Number [facility] [address] * Free T4 (05/01/2024 9:43 AM CDT) T4, Free 0.9 0.7 - 1.5 ng/dL 05/01/2024 4:03 PM CDT [facility] Blood Venipuncture / Unknown 05/01/2024 9:43 AM CDT 05/01/2024 9:43 AM CDT Rose Mary Gomez APRN, CNM LAB_1 [facility] [address] * T3, Free (05/01/2024 9:43 AM CDT) T3, Free 2.9 1.7 - 3.7 pg/mL 05/01/2024 4:03 PM CDT [facility] Blood Venipuncture / Unknown 05/01/2024 9:43 AM CDT 05/01/2024 9:43 AM CDT Rose Mary Gomez APRN, WILFRED LAB_1 Performing Organization Address City/[facility]/ZIP Co de Phone Number [facility] [address] * Comp Metabolic Panel (05/01/2024 9:43 AM CDT) Sodium 137 136 - 145 mmol/L 05/01/2024 3:48 PM CDT [facility] Potassium 4.0 3.5 - 5.1 mmol/L 05/01/2024 3:48 PM T [facility] Chloride 107 98 - 109 mmol/L 05/01/2024 3:48 PM T [facility] CO2 23 20 - 29 mmol/L 05/01/2024 3:48 PM T [facility] Anion Gap 7 6 - 16 mmol/L 05/01/2024 3:48 PM T [facility] Calcium 9.5 8.4 - 10.4 mg/dL 05/01/2024 3:48 PM T [facility] BUN 16 7 - 26 mg/dL 05/01/2024 3:48 PM T [facility] Creatinine 0.71 0.55 - 1.02 mg/dL 05/01/2024 3:48 PM T [facility] Alkaline Phosphatase 46 40 - 150 U/L 05/01/2024 3:48 PM T [facility] AST (SGOT) 17 10 - 40 U/L 05/01/2024 3:48 PM CDT [facility] ALT (SGPT) 18 <=55 U/L 05/01/2024 3:48 PM CDT [facility] Bilirubin, Total 0.4 0.2 - 1.2 mg/dL 05/01/2024 3:48 PM CDT [facility] Protein, Total 7.0 6.4 - 8.3 g/dL 05/01/2024 3:48 PM CDT [facility] Albumin 4.2 3.5 - 5.0 g/dL 05/01/2024 3:48 PM CDT [facility] Glucose 77 70 - 100 mg/dL 05/01/2024 3:48 PM T [facility] Comment:The given reference range is for the fasting state. Non-fasting reference range for glucose is 70 - 180 mg/dL. GFR, Estimated >60 >60 mL/min/1. 73m2 05/01/2024 3:48 PM CDT [facility] Hours Fasting 0.1 8 - 12 Hours 05/01/2024 3:48 PM T [facility] Blood Venipuncture / Unknown 05/01/2024 9:43 AM CDT 05/01/2024 9:43 AM CDT Rose Mary Gomez APRN, CNM LAB_1 Performing Organization Address City/State/[facility] Co de Phone Number [facility] [address] [place] [address], [facility] * CBC, No Differential Review (05/01/2024 9:43 AM CDT) WBC 6.3 3.5 - 10.5 x10(9)/L 05/01/2024 4:33 PM [facility] RBC 4.54 3.90 - 5.03 x10(12)/L 05/01/2024 4:33 PM [facility] Hemoglobin 13.1 12.0 - 15.5 g/dL 05/01/2024 4:33 PM [facility] HCT 40.0 34.9 - 44.5 % 05/01/2024 4:33 PM [facility] MCV 88.1 80.0 - 100.0 fL 05/01/2024 4:33 PM [facility] MCH 28.9 27.6 - 33.3 pg 05/01/2024 4:33 PM [facility] MCHC 32.8 31.5 - 35.2 g/dL 05/01/2024 4:33 PM [facility] RDW 11.9 11.9 - 15.5 % 05/01/2024 4:33 PM [facility] Platelets 274 150 - 450 x10(9)/L 05/01/2024 4:33 PM [facility] Automated NRBC 0 <=0 /100 WBC 05/01/2024 4:33 PM [facility] Blood Venipuncture / Unknown 05/01/2024 9:43 AM CDT 05/01/2024 9:43 AM CDT Rose Mary Gomez APRN, CNM LAB_1 Performing Organization Address City/State/[facility] Co de Phone Number [id number] [place] [address] documented in this encounter Visit Diagnoses Diagnosis Generalized anxiety disorder (HRC)- Primary Generalized anxiety disorder documented in this encounter Care Teams Cloth Opener Hand Relationship Specialty Start Date End Date Self-Referral, Patient, [place] [address] PCP - General 07/03/22 documented as of this encounter
--- OUTSIDE RECORDS SUMMARY | 2024-06-02 07:50 | XMS_ITS | Encounter Summary ---
Author Organization [facility] Address [address] [address] Care Team Providers Care Compensation Adjuster Name Role Phone Self-Referral, Patient Primary Care Provider Reason for Referral * Consult/Transfer Care (Routine) - New Request Specialty Diagnoses / Procedures Referred By Stefany palma Referred To Contact Diagnoses Encounter for other contraceptive [place] [id number] [place] [address] Referral ID Status Reason Start Date Expiration Date V isits Requested Visits Authorized [id number] New Request 05/01/2024 07/31/2025 1 1 Scheduling Instructions Your clinician has recommended an appointment with [facility]. You can quickly make your appointment online at [email or web address]. You can also call [phone] for help scheduling your appointment. We suggest you call your health insurance company about your coverage and benefits for this appointment. Question Answer Appointment Urgency? Non-Urgent Reason for Visit? Control Comments [place] Reason for Visit * Reason Comments ROUTINE HEALTH MAINTENANCE Encounter Details Date Type Department Care Team (Latest Contact Info) Description 05/01/2024 8:50 AM CDT Office Visit [facility] [address] [place] [address] [place] [address] [place], [place] [id number] Routine health maintenance (Primary Dx); Routine screening [...] 2000 IU daily Or you can take 25480 IU once a week ( 2 x [...] can you learn more? 1. Go to [email or web address]. 2. Enter P072 in the search box. Current as of: April 14, 2023 Content Version: 14.1 ?? [email or web address]. Care instructions adapted under license by your healthcare professional. If you have questions about a medical condition or this instruction, always ask your healthcare professional. [email or web address] disclaims any warranty or liability for your use of this information. dentaZOOM DNA is your genetic information, and it's unique to you. It can also hold the garcia to discovering genetic health risks, creating personalized care and building a healthier community. [facility] is launching myGenetics, a study that looks [...] family and generations to come.If you're a [facility] or Negar Gunter patient over the age of 18, you can take part in the study. Registration is quick and easy, and there is no cost to you. Learn more about [employer] and register at [facility]/Iotum Your privacy is our priority We take [...] medical history: Depression anxiety. Past surgical history: Berry tooth removed Social history: Never smoker. No alcohol or drug use. Lives at home with father and sister. Switches Garcia between mom and dad. They are . Patient quit drinking coffee 2 months ago because the psychiatrist recommended that. She drinks teasometimes. No soda consumption. She will be going to call in next Saturday in [facility]. Family history: Father has had [...] daily. Dispense: 84 Tablet; Refill: 4 - Ob-Education Spec Consult 9. Screening for STDs (sexually transmitted diseases) - Chlamydia & GC (14 Years and Older): Vagina; Future 10. Encounter for immunization - 9Vhpv (Gardasil) Zeke Mccarty MD 05/01/2024, 10:27 AM documented in this encounter Plan of Treatment Scheduled Referrals Name Type Priority Associated Diagnoses Orde r Schedule Ob-Education Spec Consult Referral Routine Encounter for other contraceptive [...] Negative (Non Reactive) 05/01/2024 4:03 PM CDT [facility] Comment:HIV-1 p24 Antigen an d HIV-1/HIV-2 Antibody not detected Blood Venipuncture / Unknown 05/01/2024 9:43 AM CDT 05/01/2024 9:43 AM CDT Zeke Mccarty MD LAB_1 [facility] [address] * Hepatitis C Antibody, with Reflex (05/01/2024 9:43 AM CDT) Hepatitis C Antibody Negative (Non Reactive) Negative (Non Reactive) 05/01/2024 3:52 PM CDT [facility] Comment:Antibodies to HCV no t detected. Does not exclude the possiblity of exposure to HCV. Blood Venipuncture / Unknown 05/01/2024 9:43 AM CDT 05/01/2024 9:43 AM CDT Zeke Mccarty MD LAB_1 Performing Organization Address [facility] Co de Phone Number [facility] [address] * Chlamydia & GC (14 Years and Older): Vagina (05/01/2024 8:59 AM CDT) Chlamydia Trachomatis STD Not Detected Not Detected 05/01/2024 3:47 PM CDT [facility] N. gonorrhoeae STD Not Detected Not Detected 05/01/2024 3:47 PM CDT [facility] Swab STD SPECIMEN FROM VAGINA / Unknown Non-blood Collection / Unknown 05/01/2024 8:59 AM CDT 05/01/2024 9:16 AM CDT Narrative [facility] - 05/01/2024 3:47 PM CDT Test performed by [employer] Mediated Amplification (TMA). Zeke Mccarty MD LAB_1 Performing Organization Address [facility] Co de Phone Number [facility] [address] documented in this encounter Visit Diagnoses [...] disease documented in this encounter Care Teams Compensation Adjuster Relationship Specialty Start Date End Date Self-Referral, Patient, [place] [address] PCP - General 07/03/22 documented as of this encounter
--- OUTSIDE RECORDS SUMMARY | 2024-06-02 07:50 | XMS_ITS | Patient Health Record ---
Author Organization [facility] Address [address] [place] [address] [address] [place] [address] Support Name Relationship Address Phone Aurora Simmons Guarantor Unknown [phone] Allergies Allergen (clinical drug ingredient) Drug/Non Drug Allergy documented on EMR Reaction Allergy Type Onset Date Status amoxicillin Amoxicillin hives Drug Allergy Act gildardo Reason For Referral No Information Immunizations Vaccine Route Administration Date Status Comme nts zzInfluenza, unspecified formulation (CPT 46867 Inactive) Unknown 07/14/2007 Administered (Jose Alejandro) Imported in from [place] Conversion on Apr 06, 2013 zzInfluenza, unspecified formulation (CPT 20358 Inactive) IM Intramuscular 09/25/2016 Administered (Jose Alejandro) [...] 13 Unknown 06/27/2005 Administered (Jose Alejandro) Novel [id number] Unknown 08/16/2009 Administered (Jose Alejandro) Novel [id number] Unknown 09/22/2009 Administered (Jose Alejandro) MMR Unknown [...] (Jose Alejandro) DTaP (INFANRIX) Unknown 09/26/2005 Administered ([facility]) Social History Tobacco Use: Social History Observation Description Date Details (start date - stop date) Never Smoker NA - NA Tobacco Use/Smoking Question Answer Notes Are you a nonsmoker Tobacco use other than smoking: Question Answer Notes Are you an other tobacco user? No Problems Problem Type SNOMED Code ICD Code Onset Dates Problem Status W/U Status Risk Notes Problem Overweight (802890246) Overweight (E66.3) Active confirmed Problem 060352282 Wears glasses (Z97.3) Active confirmed Plan Of Treatment No Information Insurance Providers Payer Name Payer Address Payer Phone Subscriber Number Group Number Insured Name Patient Relationship to Insured Coverage Start Date Coverage End Date [employer] [address] [address] [place], [place] [phone] [id number] Aurora Zepeda Child - Insured has Financial Responsibility Medical (General) History Medical History History ICD Code obstructed tear ducts Other atopic dermatitis and related cond itions 691.8 Surgical History Surgery Date(Month/Year) Procedure:glasses() 06/18/2014 Procedure:NLD probe() 07/06/2013
--- OUTSIDE RECORDS SUMMARY | 2024-06-02 07:50 | XMS_ITS | Encounter Summary ---
Author Organization [facility] Address [address] [facility] [place] [address] Care Team Providers Care Monitor Car Operator Name Role Phone Self-Referral, Patient Primary Care Provider Encounter Details Date Type Department Care Team (Latest Contact Info) Description 05/01/2024 9:30 AM CDT Lab Visit [facility] [address] [place], [place] [phone] Generalized anxiety disorder (HRC); Need for hepatitis [...] Negative (Non Reactive) 05/01/2024 4:03 PM CDT [facility] Comment:HIV-1 p24 Antigen an d HIV-1/HIV-2 Antibody not detected Blood Venipuncture / Unknown 05/01/2024 9:43 AM CDT 05/01/2024 9:43 AM CDT Zeke Mccarty MD LAB_1 [facility] [address] * Hepatitis C Antibody, with Reflex (05/01/2024 9:43 AM CDT) Hepatitis C Antibody Negative (Non Reactive) Negative (Non Reactive) 05/01/2024 3:52 PM CDT [facility] Comment:Antibodies to HCV no t detected. Does not exclude the possiblity of exposure to HCV. Blood Venipuncture / Unknown 05/01/2024 9:43 AM CDT 05/01/2024 9:43 AM CDT Zeke Mccarty MD LAB_1 Performing Organization Address [facility] Co de Phone Number [facility] [address] * (ABNORMAL) Vitamin D 25-Hydroxy, Total (05/01/2024 9:43 AM CDT) Vitamin D, 25-OH, Total 22(L) 30 - 80 ng/mL 05/01/2024 3:55 PM CDT [facility] Blood Venipuncture / Unknown 05/01/2024 9:43 AM CDT 05/01/2024 9:43 AM CDT Narrative [facility] - 05/01/2024 3:55 PM CDT Expected values Deficiency: <20 ng/mL Insufficiency: 20-29 ng/mL Optimum: 30-80 ng/mL Possible toxicity: >80 ng/mL Rose Mary Gomez APRN, CNM LAB_1 Performing Organization Address [facility] Co de Phone Number [facility] [address] * Vitamin B12 Only (05/01/2024 9:43 AM CDT) Pathologist [facility] Vitamin B12 349 213 - 816 pg/mL 05/01/2024 4:03 PM CDT [facility] Blood Venipuncture / Unknown 05/01/2024 9:43 AM CDT 05/01/2024 9:43 AM CDT Rose Mary Gomez APRN, CNM LAB_1 Performing Organization Address [facility] Co de Phone Number [facility] [address] * TSH (05/01/2024 9:43 AM CDT) TSH, Sensitive 0.77 0.30 - 4.50 uIU/mL 05/01/2024 4:03 PM CDT [facility] Blood Venipuncture / Unknown 05/01/2024 9:43 AM CDT 05/01/2024 9:43 AM CDT Rose Mary Gomez APRN, CNM LAB_1 Performing Organization Address [facility] Co de Phone Number [facility] [address] * Free T4 (05/01/2024 9:43 AM CDT) T4, Free 0.9 0.7 - 1.5 ng/dL 05/01/2024 4:03 PM CDT [facility] Blood Venipuncture / Unknown 05/01/2024 9:43 AM CDT 05/01/2024 9:43 AM CDT Rose Mary Gomez APRN, CNM LAB_1 Performing Organization Address [facility] Co de Phone Number [facility] [address] * T3, Free (05/01/2024 9:43 AM CDT) T3, Free 2.9 1.7 - 3.7 pg/mL 05/01/2024 4:03 PM CDT [facility] Blood Venipuncture / Unknown 05/01/2024 9:43 AM CDT 05/01/2024 9:43 AM CDT Rose Mary Gomez APRN, CNM LAB_1 Performing Organization Address [facility] de Phone Number [facility] [address] * Comp Metabolic Panel (05/01/2024 9:43 AM CDT) Sodium 137 136 - 145 mmol/L 05/01/2024 3:48 PM CDT [facility] Potassium 4.0 3.5 - 5.1 mmol/L 05/01/2024 3:48 PM [facility] Chloride 107 98 - 109 mmol/L 05/01/2024 3:48 PM [facility] CO2 23 20 - 29 mmol/L 05/01/2024 3:48 PM [facility] Anion Gap 7 6 - 16 mmol/L 05/01/2024 3:48 PM [facility] Calcium 9.5 8.4 - 10.4 mg/dL 05/01/2024 3:48 PM [facility] BUN 16 7 - 26 mg/dL 05/01/2024 3:48 PM [facility] Creatinine 0.71 0.55 - 1.02 mg/dL 05/01/2024 3:48 PM [facility] Alkaline Phosphatase 46 40 - 150 U/L 05/01/2024 3:48 PM [facility] AST (SGOT) 17 10 - 40 U/L 05/01/2024 3:48 PM [facility] ALT (SGPT) 18 <=55 U/L 05/01/2024 3:48 PM [facility] Bilirubin, Total 0.4 0.2 - 1.2 mg/dL 05/01/2024 3:48 PM [facility] Protein, Total 7.0 6.4 - 8.3 g/dL 05/01/2024 3:48 PM [facility] Albumin 4.2 3.5 - 5.0 g/dL 05/01/2024 3:48 PM [facility] Glucose 77 70 - 100 mg/dL 05/01/2024 3:48 PM [facility] Comment:The given reference range is for the fasting state. Non-fasting reference range for glucose is 70 - 180 mg/dL. GFR, Estimated >60 >60 mL/min/1. 73m2 05/01/2024 3:48 PM [facility] Hours Fasting 0.1 8 - 12 Hours 05/01/2024 3:48 PM [facility] Blood Venipuncture / Unknown 05/01/2024 9:43 AM CDT 05/01/2024 9:43 AM CDT Rose Mary Gomez APRN, CNM LAB_1 [facility] [address] * CBC, No Differential Review (05/01/2024 9:43 AM CDT) WBC 6.3 3.5 - 10.5 x10(9)/L 05/01/2024 4:33 PM [facility] RBC 4.54 3.90 - 5.03 x10(12)/L 05/01/2024 4:33 PM [facility] Hemoglobin 13.1 12.0 - 15.5 g/dL 05/01/2024 4:33 PM [facility] HCT 40.0 34.9 - 44.5 % 05/01/2024 4:33 PM [facility] MCV 88.1 80.0 - 100.0 fL 05/01/2024 4:33 PM [facility] MCH 28.9 27.6 - 33.3 pg 05/01/2024 4:33 PM [facility] MCHC 32.8 31.5 - 35.2 g/dL 05/01/2024 4:33 PM [facility] RDW 11.9 11.9 - 15.5 % 05/01/2024 4:33 PM [facility] Platelets 274 150 - 450 x10(9)/L 05/01/2024 4:33 PM [facility] Automated NRBC 0 <=0 /100 WBC 05/01/2024 4:33 PM [facility] Blood Venipuncture / Unknown 05/01/2024 9:43 AM CDT 05/01/2024 9:43 AM CDT Rose Mary Gomez APRN, CNM LAB_1 [place] [address], [facility] documented in this encounter Visit Diagnoses Diagnosis Generalized anxiety disorder (HRC) Generalized anxiety disorder Need for hepatitis C screening test Special screening examination for other specified viral diseases Screening for HIV (human immunodeficiency virus) Special screening examination for other specified viral diseases Anxiety (HRC) Anxiety state, unspecified documented in this encounter Care Teams Monitor Car Operator Relationship Specialty Start Date End Date Self-Referral, Patient, [place] [address] PCP - General 07/03/22 documented as of this encounter
[2024-06-02 08:19] LABS: Ur HCG Qualitative* Negative (Negative)
[2024-06-02] MEDS: LACTATED RINGERS 1000 ML 1,000 ML 100 ML IV (08:37)
[2024-06-02] MEDS: SODIUM CHLORIDE 0.9 % (FLUSH) 10 ML SYRINGE IVF (08:38)
--- NOTE | 2024-06-02 09:17 | W.PM.H&PU ---
History & Physical Update History & Physical Update H&P Reviewed and patient assessed: No changes noted
--- NOTE | 2024-06-02 09:19 | P.GSOP_ITS ---
Operative Note Date of procedure: 06/02/24 Pre-op diagnosis: 1. Acute cholecystitis. 2. Cholelithiasis. Post-op diagnosis: 1. Mild acute cholecystitis. Type of Procedure: 1. Laparoscopic cholecystectomy. Indications: 18-year-old female was seen in the emergency room with right upper quadrant pain that started several hours prior to her presentation. Patient's pain was persistent and was getting worse. That prompted her to come to the emergency room. In the emergency room she was found to have minimally elevated WBC of 12. Her AST and ALT were also minimally elevated but bilirubin was normal. Abdominal CT was obtained that showed trace pericholecystic fluid with no dilated loops of small large intestine. Gallbladder ultrasound was obtained that showed stones with sludge with no gallbladder wall thickening. There was no evidence of pericholecystic fluid on the ultrasound. The common bile duct was normal in size. Patient continued to have pain although the pain has subsided significantly. On clinical exam patient had right upper quadrant tenderness with negative Landis sign. Given her clinical history and her co ntinued pain, acute cholecystitis was suspected, and laparoscopic cholecystectomy was recommended. The procedure was discussed in detail. The risks associated procedure including infection, bleeding, injury to intra- abdominal organs, and injury to the common bile duct were discussed with the patient, and she agreed to proceed. Procedure Description: After discussing the risks and benefits of the procedure, the patient signed informed consent.? The operative site was marked and the patient was brought to the operating room and placed on the operating table in supine position.? Care was taken to pad the patient's pressure points.?? The patient was then intubated by anesthesia.?? The operative site was then prepped and draped in the usual isaura rile fashion.? A time-out was then performed. A 5-mm laparoscopy port was placed in the left upper quadrant guided by a 5-mm laparoscope placed into a translucent trochar.~ Passage through the layers of the abdominal wall was visualized with the laparoscope.~ A pneumoperitoneum was established. A 0-degree 5-mm laparoscope was advanced into the abdomen. The abdomen was briefly surveyed, and no adhesions were noted. A 10-mm port were placed infraumbilically and two more 5 mm ports were placed on the right under direct visualization by laparoscope. The camera was then changed to 10 mm 30- degree scope and placed into the abdomen through the 10 mm port. The left upper quadrant port entrance was examined and no injury to intra-abdominal organs was identified. The gallbladder was identified, the fundus grasped and retracted cephalad. The duodenum was clearly seen and no inflammation was noted near the duodenum. The gallbladder infundibulum was grasped and retracted laterally, exposing the peritoneum overlying the triangle of Calot. This was then divided and exposed in a blunt fashion and with hook cautery. Only mild inflammation was seen in the gallbladder wall during gallbladder dissection. Common bile duct was not identified but care was taken not to injure it. The cystic duct was clearly identified and bluntly dissected circumferentially. Cystic artery was identified and tissues around it were dissected off. The cystic artery and the cystic duct were clearly going into the gallbladder. The cystic duct was then doubly ligated with surgical clips on the patient's side and singly clipped on the gallbladder side and divided. The cystic artery was then similarly ligated with clips and divided as well. The gallbladder was dissected from the liver bed in retrograde fashion using hookcautery. The gallbladder was placed into an Endo-Catch bag and removed through the infraumbilical incision. Surgical site was examined for bleeding. No bleeding was seen in the surgical field. The fascia of the infraumbilical incision was then closed with 0-0 vicryl. This closure was examined intra-abdominally, and no intra-abdominal structures were incarcerated in the closure. Pneumoperitoneum was completely reduced after viewing removal of the trocars under direct vision. The skin was then closed with 4-0 monocryl and steristrips were applied. Instrument, sponge, and needle counts were correct at closure and at the conclusion of the case. The patient was transferred to PACU in stable condition. Findings: Possibly mild inflammation surrounding the gallbladder. Anesthesia: GETA Surgeon: Maia Owen MD Estimated blood loss (mL): 5 Specimen: Gallbladder Condition: stable Disposition: PACU
[2024-06-02] MEDS: BUPIVACAINE 0.25% 30 ML INJECTION (10:13)
--- NOTE | 2024-06-02 10:58 | W.ANESCHARGE ---
Anesthesia Charges Start Date/Time Anesthesia Start Date: 06/02/24 Anesthesia Start Time: 09:45 Stop Date/Time Anesthesia Stop Date: 06/02/24 Anesthesia Stop Time: 10:55
--- NOTE | 2024-06-02 11:21 | W.ANESCHARGE ---
Anesthesia Charges Start Date/Time Anesthesia Start Date: 06/02/24 Anesthesia Start Time: 09:45 Stop Date/Time Anesthesia Stop Date: 06/02/24 Anesthesia Stop Time: 10:55
[2024-06-02] MEDS: HYDROCODONE-ACETAMIN 5-325 MG 1 TAB PO (11:30)
[2024-06-02] MEDS: KETOROLAC 15 MG/ML inj IVP (12:15)
[2024-06-02] MEDS: METOCLOPRAMIDE HCL 5 MG/ML INJ 10 MG IVP (12:22)
== END 2024-06-02 13:12 | disposition home or self-care (01) ==
PROVIDERS: Anesthesiology; Visit Provider Surgery
PROC: 0FT44ZZ Resection of Gallbladder, Percutaneous Endoscopic Approach (ICD-10-PCS; CPT 47562; principal; 2024-06-02 09:15)
DX: K80.00 Calculus of gallbladder with acute cholecystitis without obstruction (principal); R10.11 Right upper quadrant pain
CPT/HCPCS: 47562; 00790; 81025; 88304; A9270; J0330; J0665; J0736; J1100; J1630; J1885; J2250; J2405; J2704; J2765; J3010; J3490; J7120